=== PATIENT | female | born 1940 | race Caucasian/White ===

== ENCOUNTER → 2017-10-20 | Outpatient (CLI) | payer MEDICARE, OTHER ==
[~2017-10-20] MED LIST: ASCO500 PO; ASPI81CH PO; CALCAVITD PO; CEFU500 PO; CHOL10002 PO; Dilantin 100 m100 MG PO; FISH1000 PO; HYDCHL12.5 PO; Hydrocodone-Ap1 EA23 PO; LEVSOD150 PO; Lisinopril2.5 MG PO; MULVITMINF PO; OXYC10TA19 PO; Omeprazole20 M1 PO; PHENY100ER PO; SIMV40 PO; VITAMIN D3 PO
== END ==
LOC: LAB 15:42
DX: N39.0 Urinary tract infection, site not specified (principal)
CPT/HCPCS: 87086

== ENCOUNTER → 2017-12-01 | Outpatient (CLI) | payer MEDICARE, OTHER ==
[2017-12-01 11:23] LABS: BASOPHILS ABSOLUTE AUTO 0.04 K/mm3 (0.00-0.23); BASOPHILS PERCENT AUTO 1 % (0-2); EOSINOPHILS PERCENT AUTO 1 % (0-6); Hematocrit 39.8 % (33.0-51.0); Hemoglobin 13.3 g/dL (11.5-16.0); IMMATURE GRAN ABSOLUTE AUTO 0.03 K/mm3 (0.00-0.10); IMMATURE GRAN PERCENT AUTO 0 % (0-1); LYMPHOCYTES PERCENT AUTO 31 % (21-46); MONOCYTES ABSOLUTE AUTO 0.58 K/mm3 (0.16-1.47); MONOCYTES PERCENT AUTO 8 % (4-13); Mean Corpuscular HGB 33.3 pg (26.0-34.0); Mean Corpuscular HGB Conc 33.4 g/dL (31.5-36.5); Mean Corpuscular Volume 100 fL (80-100); Mean Platelet Volume 8.8 fL (9.1-12.4); NEUTROPHILS ABSOLUTE AUTO 4.05 K/mm3 (1.96-9.15); NEUTROPHILS PERCENT AUTO 58 % (41-73); Platelet Count 242 K/mm3 (150-400); RDW Coefficient Variation 12.8 % (11.7-14.2); RDW Standard Deviation 47.2 fL (35.1-46.3); Red Blood Cell Count 3.99 M/mm3 (3.80-5.20)
[2017-12-01 11:33] LABS: Alanine Aminotransfer (ALT/SGP 20 U/L (12-78); Albumin, Blood 3.7 g/dL (3.4-5.0); Albumin/Globulin Ratio 1.1 (0.8-1.8); Alk Phos 160 U/L (40-126); Anion Gap 7 mmol/L (6-16); Aspartate Aminotrans (AST/SGOT 14 U/L (12-37); Bilirubin, Total 0.2 mg/dL (0.1-1.0); Blood Urea Nitrogen 17 mg/dL (8-24); Bun/Creatinine Ratio 21.8 (12.0-20.0); CO2, Blood 29 mmol/L (21-32); Calcium, Blood 9.1 mg/dL (8.5-10.1); Chloride, Blood 104 mmol/L (98-108); Creatinine, Blood 0.78 mg/dL (0.40-1.00); Globulin, Blood 3.4 g/dL (2.2-4.0); Glomerular Filtration Rate >60 (60-); Glucose, Blood 99 mg/dL (70-99); Potassium, Blood 4.6 mmol/L (3.5-5.5); Sodium, Blood 140 mmol/L (136-145); Total Protein, Blood 7.1 g/dL (6.4-8.2)
[2017-12-01 11:43] LABS: Source, Urine Clean Catch
[2017-12-01 12:07] LABS: Bacteria Mod /hpf; Red Blood Cells, Urine 0-2 /hpf (0-2); Squamous Epithelial Cells Many /hpf (Few)
== END ==
LOC: LAB SHORT 11:19
PROVIDERS: General Practice
DX: R10.9 Unspecified abdominal pain (principal)
CPT/HCPCS: 80053; 81015; 85025; 87086

== ENCOUNTER → 2017-12-29 | Outpatient (CLI) | payer MEDICARE, OTHER ==
[2017-12-29 15:34] LABS: Bilirubin, Urine Neg (Neg); Blood, Urine 1+ (Neg); Glucose Qualitative, Urine Neg (Neg); Ketones, Urine Neg (Neg); Leukocyte Esterase, Urine 3+ (Neg); Nitrite, Urine Neg (Neg); Protein, Urine Neg (Neg); Urobilinogen, Urine NORM (Normal)
[2017-12-29 15:42] LABS: Appearance, Urine Clear (Clear); Color, Urine Yellow (P-Yellow); Red Blood Cells, Urine 0-2 /hpf (0-2)
[2017-12-29 15:43] LABS: Bacteria Many /hpf; Squamous Epithelial Cells Few /hpf (Few)
== END ==
LOC: LAB 13:20
PROVIDERS: Nurse Practitioner Family
DX: R10.33 Periumbilical pain (principal); R19.09 Other intra-abdominal and pelvic swelling, mass and lump
CPT/HCPCS: 81001

== ENCOUNTER → 2018-03-02 | Outpatient (CLI) | payer MEDICARE, OTHER | LOC: LAB SHORT 11:12 → LAB 11:12 | DX: N39.0 Urinary tract infection, site not specified (principal) | CPT/HCPCS: 87086 ==

== ENCOUNTER → 2018-08-16 | Outpatient (CLI) | payer MEDICARE, OTHER | LOC: LAB SHORT 15:45 → LAB 15:45 | DX: N39.0 Urinary tract infection, site not specified (principal) | CPT/HCPCS: 87086 ==

== ENCOUNTER → 2018-10-30 | Outpatient (CLI) | payer MEDICARE, OTHER | LOC: LAB SHORT 17:42 → LAB 17:42 | DX: R10.0 Acute abdomen (principal) | CPT/HCPCS: 87077; 87086; 87186 ==

== ENCOUNTER → 2020-04-01 | Outpatient (CLI) | payer MEDICARE, OTHER ==
[2020-04-02 10:39] LABS: Candida species (DNA Probe) Negative (NEGATIVE); G. vaginalis (DNA Probe) Negative (NEGATIVE); T. vaginalis (DNA Probe) Negative (NEGATIVE)
== END | disposition home or self-care (01) ==
LOC: LAB SHORT 16:08 → LAB 16:08
PROVIDERS: Obstetrics & Gynecology
DX: N76.0 Acute vaginitis (principal)
CPT/HCPCS: 87480; 87510; 87660

== ENCOUNTER 2020-07-24 18:04 | Emergency (ER) | payer MEDICARE, OTHER ==
[~2020-07-24] VITALS: Ht 154.9 cm; Wt 91.6 kg
[~2020-07-24 18:04] MED LIST changes: +CYAN500 PO; +ESTRADIOL PO; +FOLI1 PO; +FURO20 PO; +OXYB5 PO; +Pepcid 20 mg Ta20 MG PO; +TRIAMTERENE PO
[2020-07-24] MEDS ORDERED: Percocet 7.5-31 EACH PO (20:34)
[2020-07-24] MEDS ORDERED: ONDA4ODT MM (20:35)
== END 2020-07-24 21:22 | disposition home or self-care (01) ==
LOC: ER 18:04
DX: M25.561 Pain in right knee (principal); E03.9 Hypothyroidism, unspecified; E78.5 Hyperlipidemia, unspecified; G40.909 Epilepsy, unspecified, not intractable, without status epilepticus; E66.09 Other obesity due to excess calories; I10 Essential (primary) hypertension; K21.9 Gastro-esophageal reflux disease without esophagitis; Z68.38 Body mass index [BMI] 38.0-38.9, adult; Z88.0 Allergy status to penicillin; Z79.899 Other long term (current) drug therapy
CPT/HCPCS: 99283; A9270

== ENCOUNTER 2020-07-27 07:35 | Day surgery (SDC) | payer MEDICARE, OTHER ==
[~2020-07-27] VITALS: Ht 154.9 cm; Wt 84.1 kg
[~2020-07-27 07:35] MED LIST changes: +ONDA4ODT MM; +Percocet 7.5-31 EACH PO
--- NOTE | 2020-07-27 08:59 | NUR ---
PT INTO SDS VIA W/C. History, Chart, Medications and Allergies reviewed before start of procedure. Lungs clear T/O to Auscultation. Patient confirms NPO status and agrees with scheduled surgery. Pre-Op teaching done. Pt verbalizes understanding.
--- NOTE | 2020-07-27 11:12 | NUR ---
07/27/20 1112 Caleb Florentino ALL ENTRIES BY ORD.JODYG WERE ENTERED BY ORD.ALONZO
[2020-07-27 12:24] LABS: Body Fluid Crystals NEG (NEGATIVE)
--- NOTE | 2020-07-27 14:50 | NUR ---
ARRIVE AT 1210 FROM PACU PT ARRIVED FROM PACU AT 1210, ALERT AND ORIENTED. SHE HAD AND I&D PROCEDURE INSTEAD OF SURGERY. PT REPORTS NUMBESS ON BILATERAL LOW EXTREMITY. PT UNABLE TO WIGGLE TOES AND UNABLE TO MOVE LOW EXTREMITIES. PT DENIES SOB, CHEST PAIN/ PRESSURE, DIZZINESS, PAIN AND TINGLING SENSATION. ALTHOUGH SHE REPORTED NECK PAIN. PT TOLERATED SNACKS (ANDREA AND WATER) WELL. DAUGHTER AT THE BEDSIDE. BOWEL TONES ARE HYPOACTIVE. LUNGS ARE CLEAR. STRONG PALPABLE PULSES ON ALL EXTREMITIES. R KNEE IS WRAPPED WITH WENDI WRAPPED, CDI. PT DENIES PASSING FLATUS. FLU VACCS WAS ADMINISTERED WITH TORADOL.
--- NOTE | 2020-07-27 15:05 | NUR ---
SPINAL ANESTHESIA UPDATE PT ABLE TO MOVE BILATERAL LOW EXTREMITY. SHE IS ABLE TO LIFT LEFT LEG, WEAK RIGHT LEG. PT DENIES TINGLING SENSATION. SHE WAS ABLE TO TOLERATE FLUIDS WITH NO NAUSEA, NO VOMITING, NO CHEST PAIN/PRESSURE AND NO SOB.
[2020-07-27] MEDS ORDERED: ACET500 PO (15:57)
--- NOTE | 2020-07-27 16:20 | NUR ---
PT ARRIVED TO THE UNIT AT APPROXIMATELY 1610. PT IS ALERT AND ORIENTED BUT REPORTS FEELING COLD. PT REPORTS MILD RIGHT HIP PAIN. SHE IS ABLE TO MOVE ALL EXTREMITIES WELL AND DENIES NUMBNESS TO BLE. VSS. WILL MONITOR UNTIL REPORT TO ONCOMING RN.
[2020-07-27] MEDS ORDERED: TRAM50 PO (16:34)
--- NOTE | 2020-07-27 17:04 | NUR ---
DR. PARADA CONTACTED REGARDING DISCHARGE INSTRUCTIONS. CLARIFIED NO NEED FOR ANTIBIOTICS TO BE CALLED IN FOR PT AT THIS TIME. PT AND FAMILY NOTIFIED THAT ANTIBIOTICS NOT INDICATED PER DR. PARADA. DISCHARGE INSTRUCTIONS WERE PROVIDED BY RUSSELL FORMAN.
--- NOTE | 2020-07-27 17:08 | NUR ---
DISCHARGE SUMMARY PT DISCHARGED VIA WHEELCHAIR AT 1700 WITH ELBERTSARAHA AND DAUGHTER. PT IS ALERT AND ORIENTED X 4. SHE REPORTS TINGLING SENSATION ON BILATERAL HANDS, AND BILATERAL LOWER EXTREMITIES. SHE IS ABLE TO MOVE BILATERAL LOW EXTREMITY. SHE HAS BEEN CLEARED BY PHYSICAL THERAPIST. PT DENIES SOB, CHEST PAIN/ PRESSURE, DIZZINESS, AND NUMBNESS. PT DENIES PASSING FLATUS. SHE DENIES PAIN BUT C/O BURNING RLE. RIGHT KNEE IS WRAPPED WITH WENDI WRAP, CDI. EXTRA GAUZE AND WENDI WRAP WAS PROVIDED TO TAKE HOME. PT ADIVSE TO CALL DR FOR ANY S/SX OF INFECTION. PT TOLERATING SNACK WELL PRIOR TO DISCHARGE. DISCHARGED INSTRUCTION WERE ADDRESED WITH DAUGHTER AT BEDSIDE. THEY ARE VERY RECEPTIVE. NOTIFIED THAT DR. PARADA OFFICE WILL CALL TO SCHEDULE A F/U APPT. HAND CARRY RX OF TRAMADOL WAS GIVEN TO PT.
[2020-07-27 22:50] LABS: Color, Synovial Fluid Dark Yellow (None-P Yel)
[2020-07-27 22:51] LABS: Appearance, Synovial Fluid Cloudy (Clear); BODY FLUID RBC 0.018 M/mm3 (0-0); RBC Count, Synovial Fluid 18000 /mm3 (0-0); WBC Count, Synovial Fluid 1568 /mm3 (0-180)
[2020-07-27 23:42] LABS: Lymphs, Synovial Fluid 25 % (0-15); Monocytes/Macrophages, Synovia 11 % (0-65); Neutrophils, Synovial Fluid 61 % (0-24)
== END 2020-07-27 17:00 | disposition home or self-care (01) ==
LOC: ORSCMMR 07:35 → ORD 10:45 → ORSCMMR 10:45 → SURS 12:07 → ORD 14:00 → ORSCMMR 17:00
PROVIDERS: Orthopaedic Surgery
PROC: 0SBC0ZZ Excision of Right Knee Joint, Open Approach (ICD-10-PCS; principal; 2020-07-27 10:45)
DX: M17.11 Unilateral primary osteoarthritis, right knee (principal); I10 Essential (primary) hypertension; R56.9 Unspecified convulsions; Z23 Encounter for immunization; E66.9 Obesity, unspecified; Z68.35 Body mass index [BMI] 35.0-35.9, adult; Z79.899 Other long term (current) drug therapy
CPT/HCPCS: 89051; 89060; 97116; 97162; A9270; J0171; J0690; J0735; J1885; J2250; J2405; J2704; J2795; J7120; Q2038

== ENCOUNTER 2020-08-06 05:41 | Day surgery (SDC) | payer MEDICARE, OTHER ==
[~2020-08-06] VITALS: Wt 92.4 kg
[~2020-08-06 05:41] MED LIST changes: +ACET500 PO; +TRAM50 PO
[2020-08-06] MEDS ORDERED: Lisinopril2.5 MG PO (10:21)
--- NOTE | 2020-08-06 10:27 | NUR ---
History, Chart, Medications and Allergies reviewed before start of procedure. Lungs clear T/O to Auscultation. Patient confirms NPO status and agrees with scheduled surgery. Pre-Op teaching done. Pt verbalizes understanding. Patient reports completing Chlorhexadine shower X2 prior to admission to hospital.
--- NOTE | 2020-08-06 17:28 | NUR ---
SUMMARY: PT IS POD0 L TKA. DOING WELL SINCE POST OP. VSS, A/O. MEDICATED FOR PAIN PER EMAR. ALIX TO WORK WITH THERAPY AND WALK IN [place]. HAS VOIDED, ATTENDS ON FOR OCCASIONAL INCONTENCE. SURGICAL SITE WNL. ATTEMPTING TO RESTART IV AT THIS TIME... L WRIST IV INFILTRATED. PLAN TO GIVE ABX AND TXA WHEN HAVE IV ACCESS. NO ACUTE SAFETY CONCERNS.
[2020-08-07 04:53] LABS: BASOPHILS ABSOLUTE AUTO 0.03 K/mm3 (0.00-0.23); BASOPHILS PERCENT AUTO 0 % (0-2); EOSINOPHILS ABSOLUTE AUTO 0.08 K/mm3 (0.00-0.68); EOSINOPHILS PERCENT AUTO 1 % (0-6); Hematocrit 28.8 % (33.0-51.0); Hemoglobin 9.4 g/dL (11.5-16.0); IMMATURE GRAN ABSOLUTE AUTO 0.16 K/mm3 (0.00-0.10); IMMATURE GRAN PERCENT AUTO 1 % (0-1); LYMPHOCYTES ABSOLUTE AUTO 1.86 K/mm3 (0.84-5.20); LYMPHOCYTES PERCENT AUTO 15 % (21-46); MONOCYTES ABSOLUTE AUTO 1.17 K/mm3 (0.16-1.47); MONOCYTES PERCENT AUTO 9 % (4-13); Mean Corpuscular HGB 32.5 pg (26.0-34.0); Mean Corpuscular HGB Conc 32.6 g/dL (31.5-36.5); Mean Corpuscular Volume 100 fL (80-100); NEUTROPHILS ABSOLUTE AUTO 9.52 K/mm3 (1.96-9.15); NEUTROPHILS PERCENT AUTO 74 % (41-73); Platelet Count 377 K/mm3 (150-400); RDW Coefficient Variation 12.4 % (11.7-14.2); RDW Standard Deviation 45.1 fL (35.1-46.3); Red Blood Cell Count 2.89 M/mm3 (3.80-5.20); White Blood Cell Count 12.82 K/mm3 (4.00-11.30)
[2020-08-07 05:22] LABS: Bun/Creatinine Ratio 13.6 (12.0-20.0); Calcium, Blood 8.1 mg/dL (8.5-10.1); Creatinine, Blood 1.1 mg/dL (0.40-1.00); Magnesium, Blood 2.1 mg/dL (1.6-2.4); Potassium, Blood 3.9 mmol/L (3.5-5.5)
--- NOTE | 2020-08-07 07:02 | NUR ---
SUMMARY PT UP IN CHAIR THIS AM.MED WITH TORADOL PER ROUTINE ORDER. HAS VOIDED WITH ONLY 9 ML PVR. BRUISES NOTED TO LAB DRAW SITEES AND IV ISTES, BUT PT WITHOUT C/O IN REGARDS TO THESE.
[2020-08-07] MEDS ORDERED: OXYC5 PO (16:09)
[2020-08-07] MEDS ORDERED: Aspir 8181 MG PO (16:10)
--- NOTE | 2020-08-07 16:40 | NUR ---
DISCHARGE PT PROVIDED WITH WRITTEN AND VERBAL DISCHARGE INSTRUCTIONS; PT AND HER DAUGHTER REPORTED UNDERSTANDING INSTRUCTIONS. PT PROVIDED WITH SCRIPT FOR PAIN MEDICATION. PAIN MANAGED AT TIME OF DISCHARGE. PT CLEARED THERAPY, ABLE TO AMBULATE SAFELY WITH A WALKER. PT REPORTED CONFUSION ABOUT PHYSICAL THERAPY APPOINTMENTS AND REQUESTED TO HAVE THERAPY IN [place]. MESSAGE LEFT FOR JESUS FORMAN. PT EDUCATED TO CALL SURGEON'S OFFICE AND FOLLOW UP REGARDING THERAPY APPOINTMENTS. VSS. PT ESCORTED OUT IN W/C.
== END 2020-08-07 16:40 | disposition home or self-care (01) ==
LOC: ORSCMMR 05:41 → ORD 07:30 → SURS 11:33 → ORSCMMR 08-07 16:40
PROVIDERS: Orthopaedic Surgery
PROC: 8E0Y0CZ Robotic Assisted Procedure of Lower Extremity, Open Approach (ICD-10-PCS; principal; 2020-08-06 07:30)
PROC: 0SRC0J9 Replacement of Right Knee Joint with Synthetic Substitute, Cemented, Open Approach (ICD-10-PCS; principal; 2020-08-06 07:30)
DX: M17.11 Unilateral primary osteoarthritis, right knee (principal); I10 Essential (primary) hypertension; E03.9 Hypothyroidism, unspecified; Z79.899 Other long term (current) drug therapy; E78.5 Hyperlipidemia, unspecified; G40.909 Epilepsy, unspecified, not intractable, without status epilepticus; E66.01 Morbid (severe) obesity due to excess calories; Z68.38 Body mass index [BMI] 38.0-38.9, adult
CPT/HCPCS: 27447; S2900; 73560-RT; 80048; 83735; 85025; 88300; 97110; 97116; 97162; A9270; A9270-GY; C1713; C1776; J0171; J0690; J0735; J1100; J1885; J2370; J2405; J2704; J2795; J3010; J7120

== ENCOUNTER → 2020-09-15 | Outpatient (CLI) | payer MEDICARE, OTHER ==
[~2020-09-15] MED LIST changes: +Aspir 8181 MG PO; +OXYC5 PO; +TORS10 PO; +Zofran8 MG PO
== END | disposition home or self-care (01) ==
LOC: LAB 17:10
DX: R35.0 Frequency of micturition (principal)
CPT/HCPCS: 87077; 87086; 87186

== ENCOUNTER 2020-10-03 11:56 | Emergency (ER) | payer MEDICARE, OTHER ==
[~2020-10-03] VITALS: Ht 152.4 cm; Wt 90.7 kg
[~2020-10-03 11:56] MED LIST changes: -TORS10 PO; -Zofran8 MG PO
[2020-10-03] MEDS ORDERED: TORS10 PO (12:09)
[2020-10-03 12:24] LABS: BASOPHILS ABSOLUTE AUTO 0.04 K/mm3 (0.00-0.23); BASOPHILS PERCENT AUTO 0 % (0-2); EOSINOPHILS ABSOLUTE AUTO 0.29 K/mm3 (0.00-0.68); EOSINOPHILS PERCENT AUTO 2 % (0-6); Hematocrit 36.8 % (33.0-51.0); Hemoglobin 11.9 g/dL (11.5-16.0); IMMATURE GRAN ABSOLUTE AUTO 0.05 K/mm3 (0.00-0.10); IMMATURE GRAN PERCENT AUTO 0 % (0-1); LYMPHOCYTES PERCENT AUTO 30 % (21-46); MONOCYTES ABSOLUTE AUTO 0.71 K/mm3 (0.16-1.47); MONOCYTES PERCENT AUTO 5 % (4-13); Mean Corpuscular HGB 32.4 pg (26.0-34.0); Mean Corpuscular HGB Conc 32.3 g/dL (31.5-36.5); Mean Corpuscular Volume 100 fL (80-100); Mean Platelet Volume 9.5 fL (9.1-12.4); NEUTROPHILS ABSOLUTE AUTO 9.36 K/mm3 (1.96-9.15); NEUTROPHILS PERCENT AUTO 63 % (41-73); Platelet Count 378 K/mm3 (150-400); RDW Coefficient Variation 13.8 % (11.7-14.2); Red Blood Cell Count 3.67 M/mm3 (3.80-5.20); White Blood Cell Count 14.85 K/mm3 (4.00-11.30)
[2020-10-03 12:41] LABS: Albumin, Blood 3.5 g/dL (3.4-5.0); Bilirubin, Total 0.4 mg/dL (0.1-1.0); Bun/Creatinine Ratio 13.9 (12.0-20.0); Calcium, Blood 8.5 mg/dL (8.5-10.1); Creatinine, Blood 1.37 mg/dL (0.40-1.00); Globulin, Blood 3.5 g/dL (2.2-4.0); Potassium, Blood 3.4 mmol/L (3.5-5.5)
[2020-10-03] MEDS ORDERED: Zofran8 MG PO (14:29)
== END 2020-10-03 14:55 | disposition home or self-care (01) ==
LOC: ER 11:56
PROVIDERS: Emergency Medicine
DX: E86.0 Dehydration (principal); N17.9 Acute kidney failure, unspecified; R19.7 Diarrhea, unspecified; E03.9 Hypothyroidism, unspecified; E78.5 Hyperlipidemia, unspecified; I10 Essential (primary) hypertension; K21.9 Gastro-esophageal reflux disease without esophagitis; Z88.0 Allergy status to penicillin; Z79.82 Long term (current) use of aspirin; Z79.899 Other long term (current) drug therapy
CPT/HCPCS: 36415; 71045; 74177; 80053; 83690; 85025; 93005; 93010; 96361; 96374-59; 99285-25; J2765; J7030; Q9967

== ENCOUNTER → 2021-08-09 | Outpatient (CLI) | payer MEDICARE, OTHER ==
[~2021-08-09] MED LIST changes: +TORS10 PO; +Zofran8 MG PO
== END | disposition home or self-care (01) ==
LOC: LAB 11:01 → LAB SHORT 11:01
DX: N39.0 Urinary tract infection, site not specified (principal)
CPT/HCPCS: 87077; 87086; 87186

== ENCOUNTER → 2022-06-07 | Outpatient (CLI) | payer MEDICARE, OTHER | END | disposition home or self-care (01) | LOC: LAB SHORT 15:00 | DX: N39.0 Urinary tract infection, site not specified (principal) | CPT/HCPCS: 87077; 87086; 87186 ==

== ENCOUNTER 2023-05-10 11:03 | Day surgery (SDC) | payer MEDICARE, OTHER ==
[~2023-05-10] VITALS: Ht 149.9 cm; Wt 85.7 kg
[~2023-05-10 11:03] MED LIST changes: +EUTHYROX175 MCG PO; +FOLIC ACID0.4 MG PO; +FURO40 PO; +KLOR-CON M1010 MEQ PO; +PANT40 PO
--- NOTE | 2023-05-10 11:49 | NUR ---
05/10/23 1149 Maria Alejandra Singleton TIME OUT WITH DR PARADA AND SITE CHECK 1149 BY [email or web address]
[2023-05-10 12:56] VITALS: BP 154/69
--- NOTE | 2023-05-10 12:58 | NUR ---
05/10/23 1258 Michelle Witt CASE CANCELED BY SURGEON DUE TO RAPID HEART RATE(120-140). PATIENT IS ALERT, APPROPRIATE AND DENIES S/S DISTRESS. ANESTHESIA CONTACTED, ASSESED PATIENT AND STATED THAT PATIENT NEEDS TO GO TO THE ER. SURGEON CALLED THE DAUGHTER WITH AN UPDATE AND CALLED THE ER WITH A PATIENT REPORT. PATIENT TRANSFERED TO SDU. BP 154/69, 02 100%, P149. PATIENT CONTINUES TO DENY CHEST PAIN, SOB, DIZZINESS. PATIENT TRANSFERED TO W/C AND TAKEN TO ER BY [facility].FLL. IV REMAINS INTACT AND TAKEN TO ER WITH PATIENT.
--- NOTE | 2023-05-10 12:59 | NUR ---
05/10/23 1259 Maria Alejandra Singleton LATE ENTRY: PT ARRIVES TO STEP DOWN AT 1234 ACCOMPANIED BY ORSCGRIFFIN. SURGERY WAS CANCELLED IN THE OR DUE TO INCREASED HEART RATE. DR PARADA HAS CALLED THE EMERGENCY DEPARTMENT TO GIVE REPORT AND WANTS THE PT TRANSFERERD DIRECTLY TO THE EMERGENCY DEPARTMENT TO BE TRIAGED. VITAL SIGNS WERE PREFORMED IN SDU AND THE PT IS TRANSFERED TO WHEELCHAIR AND TAKEN TO THE EMERGENCY DEPARTMENT AND CHECKED IN. FAMILY IS PRESENT AT THIS TIME.
[2023-05-10] MEDS ORDERED: FOLI1 PO (13:38)
[2023-05-10] MEDS ORDERED: LISINOPRIL2.5 MG PO (13:39)
[2023-05-10] MEDS ORDERED: FAMO20 PO (13:40)
[2023-05-10] MEDS ORDERED: PANTOPRAZOLE SO40 M2 PO (13:40)
[2023-05-10] MEDS ORDERED: KLOR-CON 1010 ME9 PO (13:42)
[2023-05-10] MEDS ORDERED: FUROSEMIDE40 MG PO (13:42)
[2023-05-10] MEDS ORDERED: Toprol Xl50 MG PO (16:56)
[2023-05-10] MEDS ORDERED: XARELTO20 MG PO (16:56)
== END 2023-05-10 12:44 | disposition home or self-care (01) ==
LOC: ORSCSDS 11:03
DX: G56.01 Carpal tunnel syndrome, right upper limb (principal); Z53.9 Procedure and treatment not carried out, unspecified reason
CPT/HCPCS: J7120

== ENCOUNTER 2023-05-10 12:44 | Emergency (ER) | payer MEDICARE, OTHER ==
[~2023-05-10] VITALS: Ht 149.9 cm; Wt 90.7 kg
[2023-05-10] MEDS ORDERED: FOLI1 PO (13:38)
[2023-05-10] MEDS ORDERED: LISINOPRIL2.5 MG PO (13:39)
[2023-05-10 13:40] LABS: BASOPHILS ABSOLUTE AUTO 0.03 K/mm3 (0.00-0.23); BASOPHILS PERCENT AUTO 0 % (0-2); EOSINOPHILS PERCENT AUTO 2 % (0-6); Hematocrit 43.7 % (33.0-51.0); Hemoglobin 14.7 g/dL (11.5-16.0); IMMATURE GRAN ABSOLUTE AUTO 0.02 K/mm3 (0.00-0.10); IMMATURE GRAN PERCENT AUTO 0 % (0-1); LYMPHOCYTES ABSOLUTE AUTO 2.45 K/mm3 (0.84-5.20); LYMPHOCYTES PERCENT AUTO 36 % (21-46); MONOCYTES ABSOLUTE AUTO 0.58 K/mm3 (0.16-1.47); MONOCYTES PERCENT AUTO 9 % (4-13); Mean Corpuscular HGB 33.3 pg (26.0-34.0); Mean Corpuscular HGB Conc 33.6 g/dL (31.5-36.5); Mean Corpuscular Volume 99 fL (80-100); Mean Platelet Volume 9.3 fL (9.1-12.4); NEUTROPHILS ABSOLUTE AUTO 3.62 K/mm3 (1.96-9.15); NEUTROPHILS PERCENT AUTO 53 % (41-73); Platelet Count 246 K/mm3 (150-400); RDW Coefficient Variation 13.5 % (11.7-14.2); RDW Standard Deviation 49.9 fL (35.1-46.3); Red Blood Cell Count 4.41 M/mm3 (3.80-5.20)
[2023-05-10] MEDS ORDERED: FAMO20 PO (13:40)
[2023-05-10] MEDS ORDERED: PANTOPRAZOLE SO40 M2 PO (13:40)
[2023-05-10] MEDS ORDERED: FUROSEMIDE40 MG PO (13:42)
[2023-05-10] MEDS ORDERED: KLOR-CON 1010 ME9 PO (13:42)
[2023-05-10 14:10] LABS: Albumin, Blood 4.1 g/dL (3.4-5.0); Albumin/Globulin Ratio 1.3 (0.8-1.8); Bilirubin, Total 0.4 mg/dL (0.1-1.0); Bun/Creatinine Ratio 14.7 (12.0-20.0); Calcium, Blood 8.8 mg/dL (8.5-10.1); Creatinine, Blood 0.89 mg/dL (0.40-1.00); Globulin, Blood 3.1 g/dL (2.2-4.0); Potassium, Blood 3.8 mmol/L (3.5-5.5); Thyroid Stimulating Hormone 6.46 uIU/mL (0.360-4.800); Total Protein, Blood 7.2 g/dL (6.4-8.2)
[2023-05-10] MEDS ORDERED: XARELTO20 MG PO (16:56)
[2023-05-10] MEDS ORDERED: Toprol Xl50 MG PO (16:56)
[2023-05-10 17:23] VITALS: BP 128/69
[2023-05-10 19:02] LABS: Campylobacter Sp Not Detected (NOT DETECT); Enteroaggregative E. coli-EAEC Not Detected (NOT DETECT); Enteropathogenic E. coli-EPEC Not Detected (NOT DETECT); Enterotoxigenic E. coli-ETEC Not Detected (NOT DETECT); Plesiomonas Shigelloides Not Detected (NOT DETECT); Salmonella Sp Not Detected (NOT DETECT); Vibrio Cholerae Not Detected (NOT DETECT); Vibrio Sp Not Detected (NOT DETECT); Yersinia Enterocolitica Not Detected (NOT DETECT)
[2023-05-10 19:03] LABS: Adenovirus F 40/41 Not Detected (NOT DETECT); Astrovirus Not Detected (NOT DETECT); Cryptosporidium Not Detected (NOT DETECT); Cyclospora Cayetanensis Not Detected (NOT DETECT); E. Coli O157 Not Detected (NOT DETECT); Entamoeba Histolytica Not Detected (NOT DETECT); Giardia Lamblia Not Detected (NOT DETECT); Norovirus GI/GII Not Detected (NOT DETECT); Rotavirus A Not Detected (NOT DETECT); Sapovirus Not Detected (NOT DETECT); Shiga Toxin-prod E. coli-STEC Not Detected (NOT DETECT); Shigella/Enteroin E. coli-EIEC Not Detected (NOT DETECT)
== END 2023-05-10 18:10 | disposition home or self-care (01) ==
LOC: ER 12:44
PROVIDERS: Physician Assistant
DX: I48.91 Unspecified atrial fibrillation (principal); G40.909 Epilepsy, unspecified, not intractable, without status epilepticus; E03.9 Hypothyroidism, unspecified; E78.5 Hyperlipidemia, unspecified; I10 Essential (primary) hypertension; Z88.0 Allergy status to penicillin; Z79.899 Other long term (current) drug therapy
CPT/HCPCS: 80053; 83735; 83880; 84443; 85025; 87507; 93005; 93010; 99285-25; A9270

== ENCOUNTER 2023-07-19 00:08 | Inpatient (IN) | payer MEDICARE, OTHER ==
[~2023-07-19] VITALS: Ht 162.6 cm; Wt 86.5 kg
[~2023-07-19 00:08] MED LIST changes: +CYCL10 PO; +FAMO20 PO; +FUROSEMIDE40 MG PO; +KLOR-CON 1010 ME9 PO; +LIDO700A20 TOP; +LISINOPRIL2.5 MG PO; +PANTOPRAZOLE SO40 M2 PO; +PHENYTOIN SODI100 MG PO; +Toprol Xl50 MG PO; +XARELTO20 MG PO; +ZOCOR20 MG PO
[2023-07-19 02:58] LABS: Influenza A, PCR NEGATIVE (NEGATIVE); Influenza B, PCR NEGATIVE (NEGATIVE); Resp Syncytial Virus, PCR NEGATIVE (NEGATIVE); SARS-Cov-2 (COVID-19) PCR, MMC NEGATIVE (NEGATIVE)
[2023-07-19 03:10] LABS: BASOPHILS ABSOLUTE AUTO 0.03 K/mm3 (0.00-0.23); BASOPHILS PERCENT AUTO 0 % (0-2); EOSINOPHILS PERCENT AUTO 0 % (0-6); Hematocrit 35.5 % (33.0-51.0); IMMATURE GRAN ABSOLUTE AUTO 0.09 K/mm3 (0.00-0.10); IMMATURE GRAN PERCENT AUTO 1 % (0-1); LYMPHOCYTES ABSOLUTE AUTO 0.76 K/mm3 (0.84-5.20); LYMPHOCYTES PERCENT AUTO 6 % (21-46); MONOCYTES ABSOLUTE AUTO 0.87 K/mm3 (0.16-1.47); MONOCYTES PERCENT AUTO 7 % (4-13); Mean Corpuscular HGB 32.2 pg (26.0-34.0); Mean Corpuscular HGB Conc 33.8 g/dL (31.5-36.5); Mean Corpuscular Volume 95 fL (80-100); Mean Platelet Volume 10.5 fL (9.1-12.4); NEUTROPHILS PERCENT AUTO 87 % (41-73); Platelet Count 238 K/mm3 (150-400); RDW Coefficient Variation 13.3 % (11.7-14.2); RDW Standard Deviation 47.4 fL (35.1-46.3); Red Blood Cell Count 3.73 M/mm3 (3.80-5.20); White Blood Cell Count 13.05 K/mm3 (4.00-11.30)
[2023-07-19 03:50] LABS: Albumin, Blood 2.5 g/dL (3.4-5.0); Albumin/Globulin Ratio 0.7 (0.8-1.8); Bilirubin, Total 0.9 mg/dL (0.1-1.0); Bun/Creatinine Ratio 20.9 (12.0-20.0); Calcium, Blood 8.6 mg/dL (8.5-10.1); Creatinine, Blood 1.15 mg/dL (0.40-1.00); Globulin, Blood 3.8 g/dL (2.2-4.0); Magnesium, Blood 1.9 mg/dL (1.6-2.4); Phosphorus, Blood 1.4 mg/dL (2.5-4.9); Potassium, Blood 3.4 mmol/L (3.5-5.5); Total Protein, Blood 6.3 g/dL (6.4-8.2)
[2023-07-19 06:01] LABS: Source, Urine Clean Catch
[2023-07-19 06:04] LABS: Appearance, Urine Hazy (Clear); Bilirubin, Urine Neg (Neg); Blood, Urine 3+ (Neg); Color, Urine Yellow (P-Yellow); Glucose Qualitative, Urine Neg (Neg); Ketones, Urine Neg (Neg); Leukocyte Esterase, Urine 3+ (Neg); Nitrite, Urine Pos (Neg); Protein, Urine 3+ (Neg); Specific Gravity, Urine 1.015 (1.003-1.022); Urobilinogen, Urine 2+ (Normal)
[2023-07-19 06:21] LABS: Bacteria Many /hpf; Squamous Epithelial Cells Few /hpf (Few); White Blood Cells, Urine 25-50 /hpf (0-5)
--- NOTE | 2023-07-19 19:36 | NUR ---
1833 PATIENT TO MEDICAL FLOOR, REPORT FROM LAPEL PADDER BLINDSTITCH, PATIENT SLOW TO RESPOND, ALERT AND ORIENTED X4, MAKES NEEDS KNOWN, NEW ATTENDS ON, PATIENT HAS BEEN VERY WEAK AND FATIGUED FOR SEVERAL DAYS AND IS UNABLE TO MOVE, DENIES CHEST PAIN+UTI, BC PENDING, PATIENT CHANGED ATTENDS, ORIENTED TO CALL LIGHT AND TV REMOTE, REPORT TO YONI
[2023-07-19 20:22] VITALS: BP 122/96
[2023-07-19] MEDS ORDERED: ERGO50000 PO (22:27)
[2023-07-19 23:18] VITALS: BP 136/95
[2023-07-19 23:37] VITALS: BP 129/89
[2023-07-19 23:50] VITALS: BP 88/60
[2023-07-19 23:52] VITALS: BP 102/62
[2023-07-20] VITALS (10 sets, daily range): BP systolic 109–128; BP diastolic 65–96
[2023-07-20 02:43] LABS: Albumin, Blood 2.1 g/dL (3.4-5.0); Albumin/Globulin Ratio 0.6 (0.8-1.8); Bilirubin, Total 0.6 mg/dL (0.1-1.0); Bun/Creatinine Ratio 21.8 (12.0-20.0); Calcium, Blood 8.1 mg/dL (8.5-10.1); Creatinine, Blood 1.1 mg/dL (0.40-1.00); Globulin, Blood 3.3 g/dL (2.2-4.0); Magnesium, Blood 1.6 mg/dL (1.6-2.4); Potassium, Blood 3.4 mmol/L (3.5-5.5); Total Protein, Blood 5.4 g/dL (6.4-8.2)
[2023-07-20 06:06] LABS: BASOPHILS ABSOLUTE AUTO 0.02 K/mm3 (0.00-0.23); BASOPHILS PERCENT AUTO 0 % (0-2); EOSINOPHILS ABSOLUTE AUTO 0.03 K/mm3 (0.00-0.68); EOSINOPHILS PERCENT AUTO 0 % (0-6); Hematocrit 32.1 % (33.0-51.0); Hemoglobin 10.8 g/dL (11.5-16.0); IMMATURE GRAN ABSOLUTE AUTO 0.09 K/mm3 (0.00-0.10); IMMATURE GRAN PERCENT AUTO 1 % (0-1); LYMPHOCYTES ABSOLUTE AUTO 0.94 K/mm3 (0.84-5.20); LYMPHOCYTES PERCENT AUTO 9 % (21-46); MONOCYTES ABSOLUTE AUTO 1.02 K/mm3 (0.16-1.47); MONOCYTES PERCENT AUTO 10 % (4-13); Mean Corpuscular HGB Conc 33.6 g/dL (31.5-36.5); Mean Corpuscular Volume 95 fL (80-100); Mean Platelet Volume 11.2 fL (9.1-12.4); NEUTROPHILS ABSOLUTE AUTO 8.34 K/mm3 (1.96-9.15); NEUTROPHILS PERCENT AUTO 80 % (41-73); Platelet Count 216 K/mm3 (150-400); RDW Coefficient Variation 13.8 % (11.7-14.2); RDW Standard Deviation 48.2 fL (35.1-46.3); Red Blood Cell Count 3.37 M/mm3 (3.80-5.20); White Blood Cell Count 10.44 K/mm3 (4.00-11.30)
[2023-07-20 06:26] LABS: Magnesium, Blood 1.8 mg/dL (1.6-2.4)
[2023-07-20 06:27] LABS: Albumin, Blood 2.1 g/dL (3.4-5.0); Anion Gap 7 mmol/L (6-16); Blood Urea Nitrogen 25 mg/dL (8-24); Bun/Creatinine Ratio 22.1 (12.0-20.0); CO2, Blood 24 mmol/L (21-32); Calcium, Blood 8.3 mg/dL (8.5-10.1); Chloride, Blood 103 mmol/L (98-108); Creatinine, Blood 1.13 mg/dL (0.40-1.00); Glomerular Filtration Rate 49 (60-); Glucose, Blood 101 mg/dL (70-99); Phosphorus, Blood 2.4 mg/dL (2.5-4.9); Potassium, Blood 3.6 mmol/L (3.5-5.5); Sodium, Blood 134 mmol/L (136-145)
--- NOTE | 2023-07-20 06:53 | NUR ---
SHIFT SUMMARY PT LAYING IN BED DURING BEDSIDE ROUND- PT DENIED PAIN/SOB ASSESSMENT DONE- PT ABLE TO ANSWER QUESTIONS APPROPRIATELY, BED BATH DONE, PT TOLERATED WELL, PT INCONTIENT OF URINE- BRIEF CHANGED-2319 PT C/O CP- CALL LAURA DANIELS- NEW ORDER FOR EKG, TROPONIN AND NITRO SL- PT REPORTED PAIN 10/10 BEFORE FIRST DOSE OF NITRO - REPEATED 2ND DOSE IN 5 MIN- PT REPORTED 0/10 AFTER 2ND DOSE- EKG = AFIB RVR- 129- CALL TO LAURA DANIELS - NEW ORDER FOR LOPRESSOR 5MG IV- [address] PEREZ RE: HR AVERAGING 120S AND UP TO 140S AT TIMES, NEW ORDER FOR CARDIZEM 10MG IV X 1- PT TOLERATING WELL HR DOWN AROUND [phone] HR IN THE 130S-140S- GAVE LOPRESSOR 5MG IV PUSH - WILL CONTINUE TO MONITOR 0 CALL FROM LAB RE BLOOD CULTURES GROWING GRAM NEG BACILLI, CALL TO DR. TEJEDA RE: REPEAT LOPRESSOR PUSH- PT HR IN 120S AND GETTING UP IN THE 140S-150S- DR. TEJEDA WILL PUT IN ORDERS 0555 GAVE REPEAT DOSE OF LOPRESSOR AND STARTED FLUIDS WITH POTASSIUM- LEFT ROOM TO GET PUMP AND RETURNED PT REMOVED OWN IV- 629 CALL FROM TELE WHILE STARTING IV THAT PT'S HR IN THE 120S AND TOUCHES UP IN THE 150S AT TIMES, - PT CONFUSED AND STATED " SOMEONE WAS EATING POTATOES CHIPS AND PUTTING JUGS OF STUFF IN MY ARM"- REORIENTED PT THAT I HAD STARTED HER FLUIDS - PT STATED THAT SHE WASN'T CONFUSED AND IT WASN'T ME IT WAS SOMEONE ELSE, NEW IV IN RIGHT AC, SECURED AND COVERED TO ASSIST WITH KEEPING FROM PT REMOVING- PT TOLERATED WELL, GIVING REPORT TO DARRYL FORMAN
--- NOTE | 2023-07-20 19:32 | NUR ---
PATIENT MENTATIONS AND ALERTNESS IMPROVED THROUGHOUT THE DAY, A&OX2-3 VERY FORGETFUL, HARD TO RE-DIRECT AT TIMES. ECHO DONE AT BEDSIDE, DAUGHTERS VISITED AT BEDSIDE, PG PLACED IN LEFT UPPER ARM, HEART RATE STAYED IN THE 110s, NO EVNETS REPORTED FROM TELE, MEDICATED ONCE WITH LOPRESSOR IV, BM SMEAR, SWALLOWING PRECAUTIONS WITH 1:1, PATIENT HAS COUGHIN EPISODES AND ASPIRATES ON FOOD AT TIMES, ST RECOMMENDED FOR TOMORROW, REPORTED TO PM RN
[2023-07-21 02:21] VITALS: BP 130/90
--- NOTE | 2023-07-21 06:42 | NUR ---
SHIFT SUMMARY PT IS A&O1-2, BEDREST DUE TO WEAKNESS, RA, PRN METOPROLOL GIVEN PER MAR X1 FOR HR IN 130'S, NO COMPLAINTS OF PAIN OR DISCOMFORT OVERNIGHT, CONTINUE POC
[2023-07-21 08:07] VITALS: BP 119/82
[2023-07-21 09:42] LABS: BASOPHILS ABSOLUTE AUTO 0.03 K/mm3 (0.00-0.23); BASOPHILS PERCENT AUTO 0 % (0-2); EOSINOPHILS ABSOLUTE AUTO 0.06 K/mm3 (0.00-0.68); EOSINOPHILS PERCENT AUTO 1 % (0-6); Hematocrit 35.2 % (33.0-51.0); Hemoglobin 11.8 g/dL (11.5-16.0); IMMATURE GRAN PERCENT AUTO 3 % (0-1); LYMPHOCYTES ABSOLUTE AUTO 0.99 K/mm3 (0.84-5.20); LYMPHOCYTES PERCENT AUTO 10 % (21-46); MONOCYTES ABSOLUTE AUTO 0.84 K/mm3 (0.16-1.47); MONOCYTES PERCENT AUTO 8 % (4-13); Mean Corpuscular HGB 31.9 pg (26.0-34.0); Mean Corpuscular HGB Conc 33.5 g/dL (31.5-36.5); Mean Corpuscular Volume 95 fL (80-100); Mean Platelet Volume 10.6 fL (9.1-12.4); NEUTROPHILS ABSOLUTE AUTO 7.91 K/mm3 (1.96-9.15); NEUTROPHILS PERCENT AUTO 78 % (41-73); Platelet Count 264 K/mm3 (150-400); RDW Coefficient Variation 13.9 % (11.7-14.2); RDW Standard Deviation 49.1 fL (35.1-46.3); White Blood Cell Count 10.13 K/mm3 (4.00-11.30)
[2023-07-21 10:01] LABS: Albumin, Blood 2.1 g/dL (3.4-5.0); Anion Gap 5 mmol/L (6-16); Blood Urea Nitrogen 27 mg/dL (8-24); Bun/Creatinine Ratio 27.7 (12.0-20.0); CO2, Blood 24 mmol/L (21-32); Calcium, Blood 8.4 mg/dL (8.5-10.1); Chloride, Blood 106 mmol/L (98-108); Creatinine, Blood 0.97 mg/dL (0.40-1.00); Glomerular Filtration Rate 59 (60-); Glucose, Blood 149 mg/dL (70-99); Phosphorus, Blood 2.4 mg/dL (2.5-4.9); Sodium, Blood 135 mmol/L (136-145)
[2023-07-21 17:19] VITALS: BP 112/76
--- NOTE | 2023-07-21 17:57 | NUR ---
SUMMARY- NO ACUTE EVENTS THIS SHIFT. PT TO EDGE OF BED TODAY AND STOOD AT THE BEDSIDE. PT GIVEN TYLENOL FOR ABD PAIN AND MIRALAX FOR "CONSTIPATION" PER PT. AAOX2. X1 ASSIST.
[2023-07-21 19:53] VITALS: BP 132/88
[2023-07-22 05:38] LABS: Hematocrit 33.7 % (33.0-51.0); Hemoglobin 11.2 g/dL (11.5-16.0); Mean Corpuscular HGB 31.7 pg (26.0-34.0); Mean Corpuscular HGB Conc 33.2 g/dL (31.5-36.5); Mean Corpuscular Volume 96 fL (80-100); Mean Platelet Volume 10.8 fL (9.1-12.4); Platelet Count 303 K/mm3 (150-400); RDW Coefficient Variation 13.8 % (11.7-14.2); RDW Standard Deviation 48.4 fL (35.1-46.3); Red Blood Cell Count 3.53 M/mm3 (3.80-5.20); White Blood Cell Count 9.33 K/mm3 (4.00-11.30)
[2023-07-22 06:37] LABS: Albumin, Blood 1.9 g/dL (3.4-5.0); Anion Gap 4 mmol/L (6-16); Blood Urea Nitrogen 26 mg/dL (8-24); Bun/Creatinine Ratio 27.2 (12.0-20.0); CO2, Blood 25 mmol/L (21-32); Calcium, Blood 8.2 mg/dL (8.5-10.1); Chloride, Blood 109 mmol/L (98-108); Creatinine, Blood 0.96 mg/dL (0.40-1.00); Glomerular Filtration Rate 59 (60-); Glucose, Blood 101 mg/dL (70-99); Phosphorus, Blood 2.5 mg/dL (2.5-4.9); Potassium, Blood 4.4 mmol/L (3.5-5.5); Sodium, Blood 138 mmol/L (136-145)
[2023-07-22 06:40] LABS: BASOPHILS PERCENT MAN 0 % (0-2); EOSINOPHILS ABSOLUTE MAN 0.27 K/mm3 (0.00-0.68); EOSINOPHILS PERCENT MAN 3 % (0-6); LYMPHOCYTES ABSOLUTE MAN 1.21 K/mm3 (0.84-5.20); LYMPHOCYTES PERCENT MAN 13 % (21-46); METAMYELOCYTE ABSOLUTE MAN 0.09 K/mm3 (0.00-0.00); METAMYELOCYTE PERCENT MAN 1 % (0-0); MONOCYTES ABSOLUTE MAN 1.21 K/mm3 (0.16-1.47); MONOCYTES PERCENT MAN 13 % (4-13); NEUTROPHILS ABSOLUTE MAN 6.53 K/mm3 (1.96-9.15); SEG NEUTROPHILS PERCENT MAN 70 % (41-73); TOTAL CELLS COUNTED 100
[2023-07-22 07:08] VITALS: BP 104/73
[2023-07-22 14:47] VITALS: BP 116/79
--- NOTE | 2023-07-22 18:35 | NUR ---
SHIFT SUMMARY: LIZ IS A&OX 2-3. VSS, NO ACUTE EVENTS THIS SHIFT. HR DID INCREASE TO THE 150'S WHILE WORKING WITH PT THIS AM. DISCUSSED WITH HOSPITALIST. PT IS A ONE-PERSON ASSIST WITH THE GAIT BELT AND FWW TO BEDSIDE RECLINER. SHE IS TOLERATING PO INTAKE WELL, BUT HAS REPORTED A POOR APPETITE THIS SHIFT. PT'S DAUGHTER STATED THAT PT HAS HAD A POOR APPETITE AT HOME WELL. POWERGLIDE TO GALEN CASH AND ATTENDS IN PLACE. PT STATES THAT SHE HAS NOT HAD A BOWEL MOVEMENT RECENTLY, BUT PT DECLINED MIRALAX THIS SHIFT. SHE IS LYING IN BED WITH THE CALL LIGHT IN REACH. WCTM UNTIL REPORT IS GIVEN TO TMD TEACHER RN.
[2023-07-22 19:38] VITALS: BP 119/87
[2023-07-22 21:26] VITALS: BP 116/82
[2023-07-22 22:34] VITALS: BP 102/87
[2023-07-22 23:30] VITALS: BP 105/47
[2023-07-23] VITALS (10 sets, daily range): BP systolic 87–113; BP diastolic 63–90
--- NOTE | 2023-07-23 00:53 | NUR ---
SHIFT SUMMARY ASSUMED CARE OF PATIENT FROM DAY RN. PATIENT IS A/0x2-3, SOFT SPOKEN, WITHDRAWN. SOME CONFUSION NOTED. INITIALLY DENIED PAIN AT START OF SHIFT. AT ABOUT TIME OF HS MEDICATION PASS, PERSONALIZED LIVING ASSISTANT CALLED THIS RN TO INFORM OF 5 SECONDS OF AFib W/RVR, HR OF 157bpm. THIS RN ASSESSED PATIENT, SHE DENIED CHEST PAIN/PRESSURE. APPEARED CONFUSED AND VAGUE WITH REPONCE, HAD PROMINENT FACIAL GRIMACE. ONCALL PROVIDER NOTFIED AND RECEIVED NEW ORDERS. FOLLOWING ADMINISTRATION OF NEW MEDICATIONS AND 1 DOSE OF NITRO SL PATIENT THEN C/O SEVER RADIATING CHEST PAIN. PROVIDER NOTFIED OF CHEST PAIN AND HEART RATE STILL TACHY 150s-170S, UNRELIEVED BY CURRENT INTERVENTONS. PER PROVIDER, PATIENT TO BE TRANSFERED TO PCU TO BEGIN CARDIZEM DRIP. REPORT CALLED TO PCU NURSE, PATIENT TRANSPORTED AT 00:15.
--- NOTE | 2023-07-23 01:21 | NUR ---
ASSUMPTION OF CARE THIS RN ASSUMED CARE OF PT AT 0018, PT TRANSFERRED FROM MEDICAL FLOOR. REPORT FROM DICKSON FUCHS. PT A&O X2 - 3; RESPONDING TO QUESTIONS AND FOLLOWING COMMANDS. PT DENIES CP OR PRESSURE, SOB, PALPIATIONS, DIZZINESS OR LIGHTHEADNESS. SMALL AUDIBLE WHEEZE NOTED WHEN PT LYING FLAT, DENIES SOB OR DIFFICULTY BREATHING. VSS; HRR AFIB 120 - 150'S, SBP 101 W/MAP OF 80. CARDIZEM GTT STARTED. WILL CONTINUE TO MONITOR AND REASSESS THIS SHIFT. PT ARRIVED W/SHAILESH IN PLACE; CHANGED AT ARRIVAL AND WILL REPLACED. PT ORIENTED TO ROOM AND CALL LIGHT IN REACH.
[2023-07-23 04:31] LABS: Hemoglobin 10.9 g/dL (11.5-16.0); Mean Corpuscular HGB 31.8 pg (26.0-34.0); Mean Corpuscular Volume 96 fL (80-100); Mean Platelet Volume 10.4 fL (9.1-12.4); Platelet Count 354 K/mm3 (150-400); RDW Coefficient Variation 13.8 % (11.7-14.2); Red Blood Cell Count 3.43 M/mm3 (3.80-5.20); White Blood Cell Count 9.72 K/mm3 (4.00-11.30)
[2023-07-23 05:08] LABS: Anion Gap 3 mmol/L (6-16); Blood Urea Nitrogen 21 mg/dL (8-24); Bun/Creatinine Ratio 22.7 (12.0-20.0); CO2, Blood 29 mmol/L (21-32); Calcium, Blood 8.1 mg/dL (8.5-10.1); Chloride, Blood 105 mmol/L (98-108); Creatinine, Blood 0.92 mg/dL (0.40-1.00); Glomerular Filtration Rate 63 (60-); Glucose, Blood 96 mg/dL (70-99); Phosphorus, Blood 4.1 mg/dL (2.5-4.9); Potassium, Blood 4.5 mmol/L (3.5-5.5); Sodium, Blood 137 mmol/L (136-145)
--- NOTE | 2023-07-23 06:19 | NUR ---
SHIFT SUMMARY PT A&O X3; FOLLOWS COMMAND AND RESPONDING TO QUESTIONS APPROPRIATELY. VSS; HR REMAINS AFIB 100'S - 120'S. CARDIZEM GTT INFUSING AT 5 MLS/HR AT THIS TIME. BP HIGH 90'S - 1 TEENS. AFEBRILE, SPO2 >95% ON RA. PT DENIES CP OR PRESSURE, DENIES SOB, PALPIATIONS OR DIZZINESS. PT RESTED WELL SINCE ARRIVAL TO PCU. REPOSITIONED Q2. PUREWICK AND ATTENDS IN PLACE. WILL UPDATE ONCOMING RN
[2023-07-23 06:58] LABS: BAND PERCENT MAN 3 % (0-8); BASOPHILS PERCENT MAN 0 % (0-2); EOSINOPHILS ABSOLUTE MAN 0.38 K/mm3 (0.00-0.68); EOSINOPHILS PERCENT MAN 4 % (0-6); LYMPHOCYTES ABSOLUTE MAN 1.84 K/mm3 (0.84-5.20); LYMPHOCYTES PERCENT MAN 19 % (21-46); METAMYELOCYTE ABSOLUTE MAN 0.19 K/mm3 (0.00-0.00); METAMYELOCYTE PERCENT MAN 2 % (0-0); MONOCYTES ABSOLUTE MAN 1.16 K/mm3 (0.16-1.47); MONOCYTES PERCENT MAN 12 % (4-13); MYELOCYTE ABSOLUTE MAN 0.19 K/mm3 (0.00-0.00); MYELOCYTE PERCENT MAN 2 % (0-0); NEUTROPHILS ABSOLUTE MAN 5.92 K/mm3 (1.96-9.15); SEG NEUTROPHILS PERCENT MAN 58 % (41-73); TOTAL CELLS COUNTED 100
--- NOTE | 2023-07-23 08:26 | NUR ---
DR. AYALA WANTS US TO HOLD THE DILTIZEM GTT AFTER THE 75MG METORPOLOL IS GIVEN. HE IS AWARE THAT THE PT'S BP IS SOFT (101/79 MAP 87).
--- NOTE | 2023-07-23 16:42 | NUR ---
SHIFT SUMMARY PT IS A&OX4 BUT HAS BEEN DROWSY THIS AFTERNOON. WE MADE SOME MEDICATION CHANGES TO BETTER CONTROL HER HR, BUT SHE WAS FEELING PRETTY LIGHTHEADED AND HAD A WHOOZY STOMACH AROUND 1300. I GOT ZOFRAN ORDERED PRN IF NEEDED. DR. AYALA WAS CALLED AROUND 1500 ABOUT THE PT'S HR TOUCHING UP TO 140. HE CAME TO SEE THE PT AND TALK TO THE FAMILY. HE RESTARTED HER XERELTO AND ORDERED PO CARDIZEM 30MG AC. PT HAS DENIED ANY ANGINA OR CHEST PRESSURE TODAY. SHE HAS BEEN ON RA AND SP02 >93% W/ NO C/O SOB. PT HAS A HX OF SEIZURES AND HER DILANTIN WAS ORDERED TO START TONIGHT. SEE NOTES FOR ANY UPDATES. FIRE IGNITION RISK HAS BEEN ASSESSED AND EDUCATION PROVIDED.
--- NOTE | 2023-07-23 17:38 | NUR ---
ASSUMPTION OF CARE: RECEIVED REPORT FROM GUIDO FORMAN AT 1700. PT ALERT AND ORIENTED X4, ABLE TO FOLLOW COMMANDS AND MAKE NEEDS KNOWN. STRENGTH WEAK EQUAL BILATERALLY. SOFT SPOKEN. BP STABLE. HR REMAINS AFIB 110-120'S. DILT DRIP REMAINS ON STANDBY. ORDERS RECIEVED FOR PO, SEE EMAR. DENIES CP/PRESSURE. +2 EDEMA NOTED IN BLE, PEDAL PULSES FAINT. PUREWICK IN PLACE, APPROX 800ML IN CANISTER. DAUGHTERS AT BEDSIDE AND UPDATED ON PT WITH PERMISSION. PT CURRENTLY IN BED EATING DINNER. BED IN LOW, CALL LIGHT IN REACH.
[2023-07-24 00:16] VITALS: BP 117/79
--- NOTE | 2023-07-24 01:39 | NUR ---
THIS RN NOTIFIED BY MARKETING OPERATIONS MANAGER THAT PT WAS SITTING AT EDGE OF BED WITH TELE STICKERS REMOVED. THIS RN TO BEDSIDE. PT SITTING AT EDGE OF BED WITH GOWN AND TELE STICKERS REMOVED AND IN HER HAND. PT ASKED WHY SHE WAS ATTEMPTING TO GET UP. PT MUMBLED NONSENSICAL WORDS. PT ASKED IF SHE KNEW WHERE SHE WAS. PT RESPONDED "I SHOULD BE AT THE HOSPITAL I GUESS." PT REOIRIENTED AND INSTRUCTED TO LAY BACK IN BED. PT AGREED AND COOPERATIVE. TELE STICKERS REPLACED AND GOWN PUT BACK ON. PT REPOSITIONED TO LEFT SIDE PER PT REQUEST. BED ALARM IN PLACE. BED IN LOWEST POSITION, CQALL LIGHT WITHIN REACH.
[2023-07-24 04:00] VITALS: BP 101/79
[2023-07-24 04:10] LABS: Hematocrit 34.3 % (33.0-51.0); Hemoglobin 11.5 g/dL (11.5-16.0); Mean Corpuscular HGB Conc 33.5 g/dL (31.5-36.5); Mean Corpuscular Volume 96 fL (80-100); Mean Platelet Volume 10.4 fL (9.1-12.4); Platelet Count 394 K/mm3 (150-400); RDW Coefficient Variation 13.7 % (11.7-14.2); RDW Standard Deviation 48.5 fL (35.1-46.3); Red Blood Cell Count 3.59 M/mm3 (3.80-5.20); White Blood Cell Count 11.68 K/mm3 (4.00-11.30)
[2023-07-24 04:54] LABS: Albumin, Blood 2.1 g/dL (3.4-5.0); Anion Gap 6 mmol/L (6-16); Blood Urea Nitrogen 18 mg/dL (8-24); Bun/Creatinine Ratio 22.6 (12.0-20.0); CO2, Blood 24 mmol/L (21-32); Chloride, Blood 106 mmol/L (98-108); Glomerular Filtration Rate 74 (60-); Glucose, Blood 105 mg/dL (70-99); Potassium, Blood 4.8 mmol/L (3.5-5.5); Sodium, Blood 136 mmol/L (136-145)
[2023-07-24 05:40] LABS: BAND PERCENT MAN 2 % (0-8); BASOPHILS PERCENT MAN 0 % (0-2); EOSINOPHILS ABSOLUTE MAN 0.11 K/mm3 (0.00-0.68); EOSINOPHILS PERCENT MAN 1 % (0-6); LYMPHOCYTES ABSOLUTE MAN 1.98 K/mm3 (0.84-5.20); LYMPHOCYTES PERCENT MAN 17 % (21-46); METAMYELOCYTE ABSOLUTE MAN 0.46 K/mm3 (0.00-0.00); METAMYELOCYTE PERCENT MAN 4 % (0-0); MONOCYTES ABSOLUTE MAN 1.75 K/mm3 (0.16-1.47); MONOCYTES PERCENT MAN 15 % (4-13); MYELOCYTE ABSOLUTE MAN 0.11 K/mm3 (0.00-0.00); MYELOCYTE PERCENT MAN 1 % (0-0); NEUTROPHILS ABSOLUTE MAN 7.24 K/mm3 (1.96-9.15); SEG NEUTROPHILS PERCENT MAN 60 % (41-73); TOTAL CELLS COUNTED 100
--- NOTE | 2023-07-24 06:22 | NUR ---
SHIFT SUMMARY PT A/OX3-4 AT BEGINNING OF SHIFT, SOME CONFUSION DURING END OF SHIFT PT WAS WAKING UP. PT HAD PERIOD OF COFUSION WHERE SHE PULLED TELE STICKERS OFF, SEE PREVIOUS NOTES. PT WAS UP TO RECLINER VIA FWW/GB AND 2 PER ASSIST AT BEGINNING OF SHIFT. PT HAD BRIEF EPISODE OF HR UP TO 150 FOR ROUGHLY 5 SEC, ASYMPTOMATIC. OTHER VSS THROUGHOUT SHIFT WITH 02 SATS IN THE 90'S ON RA. NO REPORT OF CHEST PAIN/PRESSURE THROUGHOUT SHIFT. NO REPORT OF SOB/DYSPNEA. PT INDEPENDENT IN BED.
[2023-07-24 08:33] VITALS: BP 104/85
--- NOTE | 2023-07-24 10:49 | NUR ---
PT HAS WORKED WITH PT AND OT AND BEEN UP IN CHAIR. SHE HAS HAD A SMALL BM AND COMPLAINS OF CHRONIC BACK PAIN WHEN SITTING INT HE CHAIR. PT DENIES ANY CHEST PAIN OR TIGHTNESS. CALL LIGHT IN REACH AND BED IN LOWEST POSITION. PT CALLS APPROPRIATELY.
[2023-07-24 11:39] VITALS: BP 112/79
--- NOTE | 2023-07-24 13:15 | NUR ---
PT STATED PURE WICK WAS LEAKING. PT CHANGED AND LINENS CHANGED AND PUREWICK REPOSITIONED TO SUCTION. PT REPORTED DIZZINESS, PT LAYED FLAT AND DIZZINESS PASSED. PT TOOK MEDS WHOLE WITH WATER AND HAS NO OTHER CONCERNS AT THIS TIME. CALL LIGHT IN REACH AND PT CALLS APPROPRIATELY
--- NOTE | 2023-07-24 17:37 | NUR ---
PT COUGHING EXCESSIVELY DURING DINNER. PT ABLE TO TOLERATE WATER AND PUDDING WITHOUT DIFFICULTY. WITH AN ADDITIONAL ATTEMPT WITH MECHANCAL SOFT, PT CONTNIUED TO COUGH AND HAVE DIFFICULTY SWALLOWING. PT EDUCATED ON ASP PNE RISK AND STATED UNDERSTANDING
[2023-07-24 21:15] VITALS: BP 115/84
[2023-07-24 23:17] VITALS: BP 123/103
[2023-07-25 03:37] VITALS: BP 118/89
--- NOTE | 2023-07-25 04:46 | NUR ---
SHIFT SUMMARY PT A&Ox3, CALLS AND COMMUNICATES NEEDS APPROPRIATELY, FORGETFUL AT TIMES. BP STABLE, AFIB 90-110's, DENIES CP/PRESSURE. SpO2> 92% RA, DENIES SOB. INCONTINENT OF URINE, PUREWICK IN PLACE. PT RESTED COMFORTABLY THOUGHOUT NIGHT. NO OTHER EVENTS, WILL REPORT TO ONCOMING RN.
[2023-07-25 07:50] VITALS: BP 130/89
[2023-07-25 07:53] LABS: Hematocrit 38.1 % (33.0-51.0); Hemoglobin 11.9 g/dL (11.5-16.0); Mean Corpuscular HGB 32.6 pg (26.0-34.0); Mean Corpuscular HGB Conc 31.2 g/dL (31.5-36.5); Mean Platelet Volume 9.8 fL (9.1-12.4); Platelet Count 710 K/mm3 (150-400); RDW Coefficient Variation 14.3 % (11.7-14.2); Red Blood Cell Count 3.65 M/mm3 (3.80-5.20); White Blood Cell Count 10.29 K/mm3 (4.00-11.30)
[2023-07-25 08:14] LABS: Bun/Creatinine Ratio 14.8 (12.0-20.0); Calcium, Blood 8.3 mg/dL (8.5-10.1); Creatinine, Blood 0.88 mg/dL (0.40-1.00); Potassium, Blood 4.7 mmol/L (3.5-5.5)
[2023-07-25 08:29] LABS: Mean Corpuscular Volume 104 fL (80-100)
[2023-07-25 08:49] LABS: BAND PERCENT MAN 2 % (0-8); BASOPHILS PERCENT MAN 0 % (0-2); EOSINOPHILS PERCENT MAN 1 % (0-6); LYMPHOCYTES ABSOLUTE MAN 2.05 K/mm3 (0.84-5.20); LYMPHOCYTES PERCENT MAN 20 % (21-46); METAMYELOCYTE PERCENT MAN 3 % (0-0); MONOCYTES PERCENT MAN 1 % (4-13); MYELOCYTE PERCENT MAN 1 % (0-0); NEUTROPHILS ABSOLUTE MAN 7.61 K/mm3 (1.96-9.15); SEG NEUTROPHILS PERCENT MAN 72 % (41-73); TOTAL CELLS COUNTED 100
[2023-07-25 11:53] VITALS: BP 123/93
[2023-07-25 16:41] VITALS: BP 116/91
--- NOTE | 2023-07-25 17:54 | NUR ---
PT REPORT GIVEN TO MEDICAL RN, PT TRANSFERED TO FLOOR BY MECHANICAL ASSEMBLY. PT HAS NO QUESTIONS OR CONCERNS AT TIME OF TRANSPORT.
--- NOTE | 2023-07-25 18:13 | NUR ---
TRANSFER SUMMARY: PT TX TO MEDICAL FLOOR ROOM 302. PT ARRIVED VIA WC AND TRANSFERRED WITH ONE ASSIST AND WALKER TO BED. PT ALERT AND ORIENTED X 3. PLEASANT AND COOPERATIVE. ABLE TO FOLLOW COMMANDS. PT ON RA. PT DENIES ANY NEEDS OR COMPLAINTS. CLEAN PURWICK SET UP. PT GIVEN WATER AND ORIENTED TO CALL LIGHT, ROOM, FALL PRECAUTIONS. BED ALARM SET AND IN LOW POSITION. DENIES IGNITION SOURCES.
[2023-07-25 19:42] VITALS: BP 117/79
[2023-07-26 02:30] VITALS: BP 135/83
--- NOTE | 2023-07-26 04:05 | NUR ---
SHIFT SUMMARY LIZ WAS ALERT AND FULLY ORIENTED AT THE START OF SHIFT, HOWEVER SHE SEEMS TO HAVE DIFFICULTY FOCUSING AND SOME MILD MEMORY DEFICITS. PT IS PLEASANT AND COOPERATIVE. SHE HAD NO ACUTE EVENTS THIS SHIFT. SHE WAS COMPLAINING OF LOW BACK PAIN THAT WAS UNRESOLVED BY TYLENOL, DR. TEJEDA PROVIDED ORDERS FOR PRN FENTANYL WHICH THE PATIENT STATED WAS VERY EFFECTIVE. PT STRUGGLES TO SLEEP, AND CALLS OUT LOUDLY IN HER SLEEP. PT IS CURRENTLY RESTING IN BED WITH THE CALL LIGHT IN REACH.
[2023-07-26 05:25] LABS: Bun/Creatinine Ratio 16.1 (12.0-20.0); Calcium, Blood 8.7 mg/dL (8.5-10.1); Creatinine, Blood 0.93 mg/dL (0.40-1.00); Potassium, Blood 4.4 mmol/L (3.5-5.5)
[2023-07-26 06:10] LABS: Hematocrit 40.3 % (33.0-51.0); Hemoglobin 13.2 g/dL (11.5-16.0); Mean Corpuscular HGB 31.7 pg (26.0-34.0); Mean Corpuscular HGB Conc 32.8 g/dL (31.5-36.5); Mean Platelet Volume 9.8 fL (9.1-12.4); Platelet Count 439 K/mm3 (150-400); RDW Standard Deviation 49.4 fL (35.1-46.3); Red Blood Cell Count 4.17 M/mm3 (3.80-5.20); White Blood Cell Count 11.04 K/mm3 (4.00-11.30)
[2023-07-26 06:12] LABS: Mean Corpuscular Volume 97 fL (80-100)
[2023-07-26 06:32] LABS: BASOPHILS PERCENT MAN 0 % (0-2); EOSINOPHILS ABSOLUTE MAN 0.22 K/mm3 (0.00-0.68); EOSINOPHILS PERCENT MAN 2 % (0-6); LYMPHOCYTES ABSOLUTE MAN 2.87 K/mm3 (0.84-5.20); LYMPHOCYTES PERCENT MAN 26 % (21-46); METAMYELOCYTE ABSOLUTE MAN 0.11 K/mm3 (0.00-0.00); METAMYELOCYTE PERCENT MAN 1 % (0-0); MONOCYTES ABSOLUTE MAN 0.77 K/mm3 (0.16-1.47); MONOCYTES PERCENT MAN 7 % (4-13); MYELOCYTE PERCENT MAN 10 % (0-0); NEUTROPHILS ABSOLUTE MAN 5.96 K/mm3 (1.96-9.15); SEG NEUTROPHILS PERCENT MAN 54 % (41-73); TOTAL CELLS COUNTED 100
[2023-07-26 07:37] VITALS: BP 119/73
[2023-07-26] MEDS ORDERED: METO100ER PO (11:09)
[2023-07-26] MEDS ORDERED: DILT30 PO (11:10)
[2023-07-26 14:46] VITALS: BP 116/72
[2023-07-26 15:20] LABS: Influenza A, PCR NEGATIVE (NEGATIVE); Influenza B, PCR NEGATIVE (NEGATIVE); Resp Syncytial Virus, PCR NEGATIVE (NEGATIVE); SARS-Cov-2 (COVID-19) PCR, MMC NEGATIVE (NEGATIVE)
--- NOTE | 2023-07-26 17:54 | NUR ---
DISCHARGE NOTE PT DISCHARGED TO [facility], REPORT GIVEN TO NURSE ONIEL. PACKET PROVIDED TO THE DATA ENTRY ASSOCIATE. PG REMOVED COMPLETELY. PERSONAL BELONGINGS RETURNED.
== END 2023-07-26 17:51 | DRG 872 ==
LOC: ER 00:08 → ERHOLD 11:52 → MEDS 18:26 → PCU 07-23 00:09 → MEDS 07-25 18:01 → ENPENDDIS 07-26 10:56 → MEDS 07-26 17:51
PROVIDERS: Emergency Medicine; Internal Medicine; ADMIT Family Medicine
DX: A41.51 Sepsis due to Escherichia coli [E. coli] (principal); N39.0 Urinary tract infection, site not specified; E86.0 Dehydration; E03.9 Hypothyroidism, unspecified; E78.5 Hyperlipidemia, unspecified; I10 Essential (primary) hypertension; K21.9 Gastro-esophageal reflux disease without esophagitis; M19.90 Unspecified osteoarthritis, unspecified site; M81.0 Age-related osteoporosis without current pathological fracture; G40.909 Epilepsy, unspecified, not intractable, without status epilepticus; B96.20 Unspecified Escherichia coli [E. coli] as the cause of diseases classified elsewhere; I48.91 Unspecified atrial fibrillation; Z20.822 Contact with and (suspected) exposure to COVID-19; Z90.49 Acquired absence of other specified parts of digestive tract; Z88.0 Allergy status to penicillin; Z79.890 Hormone replacement therapy; Z79.01 Long term (current) use of anticoagulants; Z79.899 Other long term (current) drug therapy; Z98.890 Other specified postprocedural states
CPT/HCPCS: 0241U; 36415; 71045; 71046; 80048; 80053; 80069; 81001; 83605; 83735; 83880; 84100; 84484; 85007; 85025; 85027; 87040; 87077; 87086; 87186; 92526; 92610; 93005; 93010; 93306; 94640; 94664; 94760; 96361; 96365; 96366; 97110; 97110-CQ; 97116; 97116-CQ; 97161; 97166; 97530; 97535; 99285-25; A9270; C1751; J0692; J0696; J1644; J1940; J2270; J3010; J3475; J3480; J7030; J7050; J7120

== ENCOUNTER → 2023-08-18 | Outpatient (CLI) | payer MEDICARE, OTHER ==
[~2023-08-18] MED LIST changes: +DILT30 PO; +ERGO50000 PO; +METO100ER PO
== END | disposition home or self-care (01) ==
LOC: LAB 17:59 → LAB SHORT 17:59
DX: R30.0 Dysuria (principal)
CPT/HCPCS: 87077; 87086; 87186

== ENCOUNTER → 2023-09-04 | Outpatient (CLI) | payer MEDICARE, OTHER | LOC: LAB 16:00 → LAB SHORT 16:00 | DX: R30.0 Dysuria (principal) | CPT/HCPCS: 87086 ==

== ENCOUNTER 2024-02-06 11:25 | Inpatient (IN) | payer MEDICARE, OTHER ==
[~2024-02-06] VITALS: Ht 147.3 cm; Wt 80.9 kg
[2024-02-06] VITALS (27 sets, daily range): BP systolic 68–128; BP diastolic 44–87
[2024-02-06] MEDS ORDERED: NS 1,000 ML IV SCH ×4 (11:40→20:55)
[2024-02-06 12:33] LABS: Source, Urine Clean Catch
[2024-02-06 12:36] LABS: BASOPHILS ABSOLUTE AUTO 0.02 K/mm3 (0.00-0.23); BASOPHILS PERCENT AUTO 0 % (0-2); EOSINOPHILS ABSOLUTE AUTO 0.04 K/mm3 (0.00-0.68); EOSINOPHILS PERCENT AUTO 0 % (0-6); Hemoglobin 13.1 g/dL (11.5-16.0); IMMATURE GRAN ABSOLUTE AUTO 0.02 K/mm3 (0.00-0.10); IMMATURE GRAN PERCENT AUTO 0 % (0-1); LYMPHOCYTES ABSOLUTE AUTO 1.79 K/mm3 (0.84-5.20); LYMPHOCYTES PERCENT AUTO 17 % (21-46); MONOCYTES ABSOLUTE AUTO 1.06 K/mm3 (0.16-1.47); MONOCYTES PERCENT AUTO 10 % (4-13); Mean Corpuscular HGB 33.1 pg (26.0-34.0); Mean Corpuscular HGB Conc 32.8 g/dL (31.5-36.5); Mean Corpuscular Volume 101 fL (80-100); Mean Platelet Volume 9.7 fL (9.1-12.4); NEUTROPHILS ABSOLUTE AUTO 7.38 K/mm3 (1.96-9.15); NEUTROPHILS PERCENT AUTO 72 % (41-73); Platelet Count 254 K/mm3 (150-400); RDW Coefficient Variation 13.7 % (11.7-14.2); RDW Standard Deviation 51.8 fL (35.1-46.3); Red Blood Cell Count 3.96 M/mm3 (3.80-5.20); White Blood Cell Count 10.31 K/mm3 (4.00-11.30)
[2024-02-06 12:40] LABS: Appearance, Urine Hazy (Clear); Bilirubin, Urine Neg (Neg); Blood, Urine 1+ (Neg); Color, Urine Yellow (P-Yellow); Glucose Qualitative, Urine Neg (Neg); Ketones, Urine Neg (Neg); Leukocyte Esterase, Urine 3+ (Neg); Nitrite, Urine Pos (Neg); Protein, Urine Neg (Neg); Urobilinogen, Urine NORM (Normal)
[2024-02-06 12:45] LABS: Albumin, Blood 3.9 g/dL (3.4-5.0); Albumin/Globulin Ratio 1.1 (0.8-1.8); Bilirubin, Total 0.6 mg/dL (0.1-1.0); Bun/Creatinine Ratio 31.6 (12.0-20.0); Calcium, Blood 8.8 mg/dL (8.5-10.1); Creatinine, Blood 1.33 mg/dL (0.40-1.00); Globulin, Blood 3.4 g/dL (2.2-4.0); Potassium, Blood 5.2 mmol/L (3.5-5.5); Total Protein, Blood 7.3 g/dL (6.4-8.2)
[2024-02-06 12:50] LABS: Bacteria Many /hpf; Squamous Epithelial Cells Rare /hpf (Few); White Blood Cells, Urine TNTC /hpf (0-5)
[2024-02-06] MEDS ORDERED: GABA300 PO (13:30)
[2024-02-06] MEDS ORDERED: HYDR1TAB94 PO (13:31)
[2024-02-06] MEDS ORDERED: Lisinopril2.5 MG PO (13:33)
[2024-02-06] MEDS ORDERED: POTA10T PO (13:34)
[2024-02-06] MEDS ORDERED: [UNRECOGNIZED DRUG - CODE] (13:34)
[2024-02-06] MEDS ORDERED: PANT40 PO (13:34)
[2024-02-06] MEDS ORDERED: Ultram50 MG PO (13:35)
[2024-02-06] MEDS ORDERED: FAMO20 PO (13:36)
[2024-02-06] MEDS ORDERED: LevoFLOXacin 750 MG/D5W 150ML 150 ML IV ONE (13:40)
[2024-02-06] MEDS ORDERED: HYDROcodone 5-APAP 325 TAB PO PRN (17:35)
--- NOTE | 2024-02-06 19:03 | NUR ---
ASSUMPTION OF CARE/ SHIFT SUMMARY PATIENT ARRIVED TO ICU AROUND 171. PATIENT ALERT AND ORIENTED X 4, PLEASANT AND COOPERATIVE. PATIENT AFEBRILE. PATIENT GIVEN PRN NORCO FOR COMPLAINTS OF CHRONIC BACK PAIN. PATIENT HAS REMAINED SATTING 90% AND GREATER ON RA. PATIENT HAS REMAINED IN A. FIB, HR 90S TO LOW 100S. SBP 80S TO 120S. ANTI EMBOLISM STOCKINGS PLACED THIS SHIFT. PATIENT ATE GOOD DINNER. PATIENT HAD 700 MLS OF YELLOW COLORED URINE FROM PUREWICK. NS INFUSING AT 125 MLS/ HOUR. PG PLACED TO L UA. PATIENT DIFFICULT STICK. LEVOPHED ON EMAR IF NEEDED. PATIENT'S GRANDDAUGHTER AT BEDSIDE. PATIENT ORIENTED TO UNIT, ROOM AND CALL LIGHT. BED LOW, CALL LIGHT IN REACH. REPORT GIVEN TO ASSUMING CARPET TILE LAYER RN.
--- NOTE | 2024-02-06 20:40 | NUR ---
BEDSIDE SHIFT REPORT FROM NETTA, PT VISITING W GRANDDAUGHTER AT BEDSIDE. GRANDDAUGHTER STATES PT PREVIOUSLY HAD BEEN DNR STATUS, WANTING TREATMENTS BUT NO CPR DEFIB OR INTUBATION. PT IS ALERT, ON RA, BP CONT SOFT. WILL CONT TO MONITOR
--- NOTE | 2024-02-06 20:49 | NUR ---
DR AYALA BY TO CHECK ON PT, ORDERS REC'D FOR DNR. WILL TRY DOSE OF MIDODRINE BEFORE STARTING LEVOPHED.
[2024-02-06] MEDS ORDERED: Midodrine 5 MG Tab PO ONE (20:55)
[2024-02-06] MEDS ORDERED: Famotidine 20 MG Tab PO SCH (21:00)
[2024-02-06] MEDS ORDERED: Gabapentin 300 MG Cap PO SCH (21:00)
[2024-02-06] MEDS ORDERED: Atorvastatin 10 MG Tab PO SCH (21:00)
[2024-02-07] VITALS (40 sets, daily range): BP systolic 85–129; BP diastolic 57–95
--- NOTE | 2024-02-07 04:14 | NUR ---
PT SLEEPING SOUNDLY AT THIS TIME W HOB ELEVATED. MIDODRINE ONE TIME DOSE W GOOD RESULTS. PT COMPLAINING OF DISCOMFORT FROM CINDI HOSE, REMOVED AND SCD'S PLACED, PT MARCELINA WELL.
[2024-02-07 04:27] LABS: BASOPHILS ABSOLUTE AUTO 0.02 K/mm3 (0.00-0.23); BASOPHILS PERCENT AUTO 0 % (0-2); EOSINOPHILS ABSOLUTE AUTO 0.15 K/mm3 (0.00-0.68); EOSINOPHILS PERCENT AUTO 2 % (0-6); Hematocrit 34.9 % (33.0-51.0); Hemoglobin 11.3 g/dL (11.5-16.0); IMMATURE GRAN ABSOLUTE AUTO 0.02 K/mm3 (0.00-0.10); IMMATURE GRAN PERCENT AUTO 0 % (0-1); LYMPHOCYTES ABSOLUTE AUTO 1.76 K/mm3 (0.84-5.20); LYMPHOCYTES PERCENT AUTO 24 % (21-46); MONOCYTES ABSOLUTE AUTO 0.97 K/mm3 (0.16-1.47); MONOCYTES PERCENT AUTO 13 % (4-13); Mean Corpuscular HGB 32.8 pg (26.0-34.0); Mean Corpuscular HGB Conc 32.4 g/dL (31.5-36.5); Mean Corpuscular Volume 101 fL (80-100); Mean Platelet Volume 9.9 fL (9.1-12.4); NEUTROPHILS ABSOLUTE AUTO 4.58 K/mm3 (1.96-9.15); NEUTROPHILS PERCENT AUTO 61 % (41-73); Platelet Count 210 K/mm3 (150-400); RDW Coefficient Variation 13.9 % (11.7-14.2); RDW Standard Deviation 51.5 fL (35.1-46.3); Red Blood Cell Count 3.45 M/mm3 (3.80-5.20)
[2024-02-07 04:59] LABS: Albumin, Blood 3.1 g/dL (3.4-5.0); Anion Gap 8 mmol/L (3-11); Blood Urea Nitrogen 32 mg/dL (8-24); Bun/Creatinine Ratio 28.1 (12.0-20.0); CO2, Blood 25 mmol/L (21-32); Calcium, Blood 8.1 mg/dL (8.5-10.1); Chloride, Blood 114 mmol/L (98-108); Creatinine, Blood 1.14 mg/dL (0.40-1.00); Glomerular Filtration Rate 48 (60-); Glucose, Blood 96 mg/dL (70-99); Magnesium, Blood 1.8 mg/dL (1.6-2.4); Phosphorus, Blood 2.8 mg/dL (2.5-4.9); Potassium, Blood 5.1 mmol/L (3.5-5.5); Sodium, Blood 142 mmol/L (136-145)
[2024-02-07] MEDS ORDERED: Levothyroxine Sodium 0.175 MG TAB PO SCH (06:00)
--- NOTE | 2024-02-07 06:15 | NUR ---
PT SLEPT WELL TONIGHT, SHE HAD "WARNED" ME THAT SHE SOMETIMES SCREAMS DURING HER SLEEP, AND HAS EVEN PULLED AN IV OUT ON LAST ADMIT. PT WAS STILL SLEEPING SOUNDLY WHEN TIME FOR AM WEIGHT, IV TUBING FOUND WRAPPED AROUND HER ARM & IV PULLED OUT, CATH INTACT. PT STATED SHE HAD BEEN CALLING AND ASKING SOMEONE TO BRING HER CORN. AWAKE NOW, AND ORIENTED. LINENS CHANGED. BP HAS BEEN STABLE AFTER MIDODRINE DOSE. GOOD URINE OUTPUT. DENIES PAIN THIS AM, AND HAS REFUSED PRN MED. CONT AFIB W OCCAS PVC. CALL LIGHT IN REACH, BED LOW POSITION.
--- NOTE | 2024-02-07 07:13 | NUR ---
DR. AYALA HERE TO SEE PATIENT. ORDERS RECEIVED.
--- NOTE | 2024-02-07 08:45 | NUR ---
INITIAL ASSESSMENT PATIENT ALERT AND ORIENTED X 4, AFEBRILE. PATIENT HAS CHRONIC BACK PAIN BUT STATES THAT PAIN IS MANAGEABLE AT THIS TIME. PATIENT WEAK BUT ABLE TO MOVE ALL EXTREMITIES. PATIENT NEEDS ASSISTANCE WITH REPOSITIONING. PATIENT SATTING 90% AND GREATER ON RA. PATIENT IN A. FIB WITH PVCS, HR 80S TO 90S. SBP 80S TO LOW 100S. PATIENT STARTED ON MIDODRINE THIS AM. 2+ EDEMA NOTED TO BLES. SCDS IN PLACE. GI WNL. GOOD APPETITE. DATE OF LAST BM UNKNOWN. PUREWICK IN PLACE DRAINING YELLOW COLORED URINE. SCATTERED BRUISES NOTED T/O BODY. NS TKO. BED LOW, CALL LIGHT IN REACH. CARE CONTINUES.
[2024-02-07] MEDS ORDERED: Folic Acid 1 MG TAB PO SCH (09:00)
[2024-02-07] MEDS ORDERED: Gabapentin 300 MG Cap PO SCH (09:00)
[2024-02-07] MEDS ORDERED: Midodrine 5 MG Tab PO SCH (09:00)
[2024-02-07] MEDS ORDERED: Metoprolol Succinate 50 MG TABCR PO SCH (09:00)
[2024-02-07] MEDS ORDERED: CefTRIAXone Sodium 1,000 MG in NS 100 ML IV SCH (09:00)
[2024-02-07] MEDS ORDERED: Rivaroxaban 10 MG Tab PO SCH (09:00)
[2024-02-07] MEDS ORDERED: MIRALAX17 GM PO (10:37)
[2024-02-07] MEDS ORDERED: CHOLESTYRAMI239.4 G5 PO (10:41)
--- NOTE | 2024-02-07 12:40 | NUR ---
PATIENT AFEBRILE. HR IN THE 90S. SBP IN THE 120S. NO OTHER ACUTE CHANGES TO NOTE ON AT THIS TIME. NO COMPLAINTS. CARE CONTINUES.
--- NOTE | 2024-02-07 15:25 | NUR ---
PATIENT AFEBRILE. HR IN THE 80S. SBP IN THE 120S. NO OTHER ACUTE CHANGES TO NOTE ON AT THIS TIME. NO COMPLAINTS. CARE CONTINUES.
--- NOTE | 2024-02-07 16:44 | NUR ---
SHIFT SUMMARY PATIENT REMAINED ALERT AND ORIENTED X 4, AFEBRILE. PATIENT HAD NO COMPLAINTS OF PAIN THIS SHIFT. PATIENT WEAK BUT ABLE TO AMBULATE WITH FWW AND 1 PERSON ASSIST. PATIENT REMAINED SATTING 90% AND GREATER ON RA. PATIENT REMAINED IN A. FIB WITH PVCS, HR 80S TO 90S. SBP 80S TO 120S. MIDODRINE ORDERED THIS AM TID. SCDS HAVE REMAINED IN PLACE WITH SMALL BREAKS WHEN AMBULATING. PATIENT HAD GOOD APPETITE. PATIENT HAD A BOWEL MOVEMENT THIS SHIFT. PATIENT HAD 950 MLS OF URINE OUT FROM PUREWICK THIS SHIFT. NO CHANGES TO SKIN NOTED. PATIENT HAD COMPLETE BED BATH THIS SHIFT. PT AND OT WORKED WITH PATIENT THIS SHIFT. MED REC COMPLETED THIS SHIFT. PATIENT BEING MOVED OUT TO PCU ROOM 20. FAMILY HAS BEEN INFORMED.
--- NOTE | 2024-02-07 17:04 | NUR ---
Assumed care at approximately 1700. Report received from BORING MILL OPERATOR. Pt arrived in PCU via wheelchair. Able to stand and ambulate to bed with one person standby assist. VS stable, pt alert and oriented. Will continue to monitor.
--- NOTE | 2024-02-07 17:05 | NUR ---
PATIENT TRANSFER COMPLETE TO PCU 20. ALL BELONGINGS SENT WITH PATIENT. FAMILY AWARE OF TRANSFER.
--- NOTE | 2024-02-07 18:40 | NUR ---
Shift summary. No acute events since arriving to PCU. See chart for further details. Will report off to nightshift RN.
[2024-02-07] MEDS ORDERED: Famotidine 20 MG Tab PO SCH (21:00)
[2024-02-08] VITALS (9 sets, daily range): BP systolic 95–136; BP diastolic 50–79
[2024-02-08 05:02] LABS: BASOPHILS ABSOLUTE AUTO 0.02 K/mm3 (0.00-0.23); BASOPHILS PERCENT AUTO 0 % (0-2); EOSINOPHILS ABSOLUTE AUTO 0.24 K/mm3 (0.00-0.68); EOSINOPHILS PERCENT AUTO 3 % (0-6); Hematocrit 36.2 % (33.0-51.0); Hemoglobin 11.8 g/dL (11.5-16.0); IMMATURE GRAN ABSOLUTE AUTO 0.03 K/mm3 (0.00-0.10); IMMATURE GRAN PERCENT AUTO 0 % (0-1); LYMPHOCYTES ABSOLUTE AUTO 2.44 K/mm3 (0.84-5.20); LYMPHOCYTES PERCENT AUTO 29 % (21-46); MONOCYTES ABSOLUTE AUTO 0.88 K/mm3 (0.16-1.47); MONOCYTES PERCENT AUTO 10 % (4-13); Mean Corpuscular HGB 33.3 pg (26.0-34.0); Mean Corpuscular HGB Conc 32.6 g/dL (31.5-36.5); Mean Corpuscular Volume 102 fL (80-100); Mean Platelet Volume 10.1 fL (9.1-12.4); NEUTROPHILS ABSOLUTE AUTO 4.84 K/mm3 (1.96-9.15); NEUTROPHILS PERCENT AUTO 57 % (41-73); Platelet Count 220 K/mm3 (150-400); RDW Coefficient Variation 13.8 % (11.7-14.2); RDW Standard Deviation 52.7 fL (35.1-46.3); Red Blood Cell Count 3.54 M/mm3 (3.80-5.20); White Blood Cell Count 8.45 K/mm3 (4.00-11.30)
[2024-02-08 05:10] LABS: Anion Gap 9 mmol/L (3-11); Blood Urea Nitrogen 34 mg/dL (8-24); Bun/Creatinine Ratio 31.2 (12.0-20.0); CO2, Blood 26 mmol/L (21-32); Calcium, Blood 8.5 mg/dL (8.5-10.1); Chloride, Blood 113 mmol/L (98-108); Creatinine, Blood 1.09 mg/dL (0.40-1.00); Glomerular Filtration Rate 51 (60-); Glucose, Blood 104 mg/dL (70-99); Phosphorus, Blood 2.5 mg/dL (2.5-4.9); Potassium, Blood 5.2 mmol/L (3.5-5.5); Sodium, Blood 143 mmol/L (136-145)
--- NOTE | 2024-02-08 06:08 | NUR ---
SHIFT SUMMARY PT A&Ox3-4, CONFUSED AT TIMES, COMMUNICATES NEEDS APPROPRIATELY. PT YELLS IN HER SLEEP. BP STABLE, AFIB 70-90's, DENIES CP/PRESSURE. SpO2> 92% RA, DENIES SOB. INCONTINENT/CONTINENT, PUREWICK IN PLACE. DENIES PAIN. NO OTHER EVENTS, WILL REPORT TO ONCOMING RN.
--- NOTE | 2024-02-08 11:02 | NUR ---
AM NOTE this rn assumed care at 0700. vital signs stable. at the start of shift tele in place afib in the 70-80s, and then switched to medical status no tele. tele removed, at the time of removal remaind afib in the 70-80 range. patient is alert and oriented x4. perrla able to make needs known. neuro is intact. patient is one person assist with fron wheel walker to bedside comode. patient denies chest pain/pressure, pain or shortness of breath. see shift assessment for further detials. md burden in to see patient this am. plan of care is up to date
--- NOTE | 2024-02-08 17:11 | NUR ---
shift summary/report to medical floor rn patient neuro remains intact. vitals remain stable. patient up in room and walked around with front wheel walker and one person assist. patient denies pain, chest pain/pressure or shortness of breath. patient daughter in room and updated on moving to room 330. this rn gave reprot to angelique on medical floor.
--- NOTE | 2024-02-08 18:11 | NUR ---
pt just arrived via wheelchair from pcu, she was able to stand and ambulate slowly to the bed from chair with a gait belt, daughter in attendence. pt doing ok, got her settled in bed with call light in reach.
[2024-02-09 03:30] VITALS: BP 113/80
--- NOTE | 2024-02-09 05:31 | NUR ---
SHIFT SUMMARY: PATIENT A AND O X 3-4, LESSENED LATER IN EVENING.PLEASANT AND TALKATIVE, ABLE TO DESCRIBE HEALTH. ADMITS TO "FALLING A LOT" AT HOME. INCONTINENCE ISSUES, ONE PERSON TRANSFER [facility] GAIT BELT AND WALKER, AT PATIENT REQUEST, BRIEF AT ALL TIMES WITH PUREWICK DURING NIGHT. POWERGLIDE TO LEFT UPPER ARM. ROCEPHIN QD FOR UTI WITH E COLI. REGULAR DIET, FEEDS SELF. +2 BILATERAL LOWER EDEMA NOTED. NO COMPLAINTS OF PAIN.
[2024-02-09 06:11] LABS: BASOPHILS ABSOLUTE AUTO 0.04 K/mm3 (0.00-0.23); BASOPHILS PERCENT AUTO 1 % (0-2); EOSINOPHILS ABSOLUTE AUTO 0.25 K/mm3 (0.00-0.68); EOSINOPHILS PERCENT AUTO 4 % (0-6); Hematocrit 34.4 % (33.0-51.0); Hemoglobin 11.2 g/dL (11.5-16.0); IMMATURE GRAN ABSOLUTE AUTO 0.02 K/mm3 (0.00-0.10); IMMATURE GRAN PERCENT AUTO 0 % (0-1); LYMPHOCYTES ABSOLUTE AUTO 2.05 K/mm3 (0.84-5.20); LYMPHOCYTES PERCENT AUTO 29 % (21-46); MONOCYTES ABSOLUTE AUTO 0.76 K/mm3 (0.16-1.47); MONOCYTES PERCENT AUTO 11 % (4-13); Mean Corpuscular HGB 33.3 pg (26.0-34.0); Mean Corpuscular HGB Conc 32.6 g/dL (31.5-36.5); Mean Corpuscular Volume 102 fL (80-100); Mean Platelet Volume 9.9 fL (9.1-12.4); NEUTROPHILS ABSOLUTE AUTO 3.89 K/mm3 (1.96-9.15); NEUTROPHILS PERCENT AUTO 56 % (41-73); Platelet Count 216 K/mm3 (150-400); RDW Standard Deviation 52.8 fL (35.1-46.3); Red Blood Cell Count 3.36 M/mm3 (3.80-5.20); White Blood Cell Count 7.01 K/mm3 (4.00-11.30)
[2024-02-09 06:43] LABS: Albumin, Blood 2.8 g/dL (3.4-5.0); Anion Gap 10 mmol/L (3-11); Blood Urea Nitrogen 33 mg/dL (8-24); Bun/Creatinine Ratio 40.1 (12.0-20.0); CO2, Blood 23 mmol/L (21-32); Calcium, Blood 8.5 mg/dL (8.5-10.1); Chloride, Blood 113 mmol/L (98-108); Creatinine, Blood 0.82 mg/dL (0.40-1.00); Glomerular Filtration Rate 72 (60-); Glucose, Blood 99 mg/dL (70-99); Phosphorus, Blood 2.7 mg/dL (2.5-4.9); Potassium, Blood 4.8 mmol/L (3.5-5.5); Sodium, Blood 141 mmol/L (136-145)
[2024-02-09 07:25] VITALS: BP 128/67
[2024-02-09 14:47] VITALS: BP 132/93
[2024-02-09] MEDS ORDERED: Dilantin 100 m100 MG PO (15:56)
[2024-02-09] MEDS ORDERED: MIDO5 PO (15:57)
[2024-02-09] MEDS ORDERED: XARELTO20 MG PO (15:57)
[2024-02-09] MEDS ORDERED: SULTRIDS PO (15:58)
== END 2024-02-09 17:02 | disposition home health service (06) | DRG 872 ==
LOC: ER 11:25 → PCU 14:42 → ICUE 17:16 → PCU 02-07 16:58 → MEDS 02-08 18:04
PROVIDERS: Physician Assistant; ADMIT Family Medicine
PROC: 3E03329 Introduction of Other Anti-infective into Peripheral Vein, Percutaneous Approach (ICD-10-PCS; principal; 2024-02-06)
PROC: 3E033XZ Introduction of Vasopressor into Peripheral Vein, Percutaneous Approach (ICD-10-PCS; 2024-02-06)
DX: A41.51 Sepsis due to Escherichia coli [E. coli] (principal); N39.0 Urinary tract infection, site not specified; I48.91 Unspecified atrial fibrillation; N28.9 Disorder of kidney and ureter, unspecified; G40.909 Epilepsy, unspecified, not intractable, without status epilepticus; E03.9 Hypothyroidism, unspecified; E78.5 Hyperlipidemia, unspecified; I10 Essential (primary) hypertension; K21.9 Gastro-esophageal reflux disease without esophagitis; I95.9 Hypotension, unspecified; M19.90 Unspecified osteoarthritis, unspecified site; M81.0 Age-related osteoporosis without current pathological fracture; Z79.01 Long term (current) use of anticoagulants; Z79.899 Other long term (current) drug therapy; Z79.890 Hormone replacement therapy; Z79.891 Long term (current) use of opiate analgesic; Z88.0 Allergy status to penicillin; Z90.49 Acquired absence of other specified parts of digestive tract
CPT/HCPCS: 36415; 80053; 80069; 81001; 83605; 83735; 85025; 87040; 87077; 87086; 87186; 93005; 93010; 96361; 96365; 97116; 97161; 97165; 97530; 99285-25; A9270; C1751; J0696; J1956; J7030

== ENCOUNTER 2024-02-23 17:32 | Inpatient (IN) | payer MEDICARE, OTHER ==
[~2024-02-23] VITALS: Ht 162.6 cm; Wt 87.0 kg
[2024-02-25 16:42] VITALS: BP 126/94
== END 2024-02-25 17:20 | disposition home or self-care (01) | DRG 683 ==
LOC: ER 17:32 → PCU 21:05
PROVIDERS: ADMIT Student in an Organized Health Care Education/Training Program
DX: N17.9 Acute kidney failure, unspecified (principal); A04.72 Enterocolitis due to Clostridium difficile, not specified as recurrent; E87.5 Hyperkalemia; G40.909 Epilepsy, unspecified, not intractable, without status epilepticus; I48.91 Unspecified atrial fibrillation; I95.9 Hypotension, unspecified; G89.4 Chronic pain syndrome; E86.0 Dehydration; E03.9 Hypothyroidism, unspecified; K21.9 Gastro-esophageal reflux disease without esophagitis; E78.5 Hyperlipidemia, unspecified; I10 Essential (primary) hypertension; M81.0 Age-related osteoporosis without current pathological fracture; Z98.890 Other specified postprocedural states; Z88.0 Allergy status to penicillin; Z79.899 Other long term (current) drug therapy; Z79.01 Long term (current) use of anticoagulants; Z79.890 Hormone replacement therapy; Z90.49 Acquired absence of other specified parts of digestive tract

== ENCOUNTER → 2024-04-24 | Outpatient (CLI) | payer MEDICARE, OTHER ==
[~2024-04-24] MED LIST changes: +CHOLESTYRAMI239.4 G5 PO; +GABA300 PO; +HYDR1TAB94 PO; +MIDO5 PO; +MIRALAX17 GM PO; +POTA10T PO; +SULTRIDS PO; +Ultram50 MG PO; +[UNRECOGNIZED DRUG - CODE]
== END ==
LOC: LAB SHORT 17:45 → LAB 17:45
DX: H10.31 Unspecified acute conjunctivitis, right eye (principal)
CPT/HCPCS: 87070; 87077; 87186; 87205

== ENCOUNTER 2024-06-19 16:40 | Emergency (ER) | payer MEDICARE, OTHER ==
[~2024-06-19] VITALS: Ht 154.9 cm; Wt 68.0 kg
[2024-06-19 17:09] VITALS: BP 118/78
[2024-06-19 17:18] LABS: Source, Urine Straight Cath
[2024-06-19 17:22] LABS: Appearance, Urine Clear (Clear); Bilirubin, Urine Neg (Neg); Blood, Urine 1+ (Neg); Glucose Qualitative, Urine Neg (Neg); Ketones, Urine Neg (Neg); Leukocyte Esterase, Urine Neg (Neg); Nitrite, Urine Neg (Neg); Protein, Urine Neg (Neg); Urobilinogen, Urine NORM (Normal)
[2024-06-19 17:32] LABS: Color, Urine Pale Yellow (P-Yellow)
[2024-06-19 17:33] LABS: Bacteria Rare /hpf; Hyaline Casts 0-2 /lpf (0-2); Red Blood Cells, Urine 0-2 /hpf (0-2); Squamous Epithelial Cells Rare /hpf (Few); White Blood Cells, Urine 0-2 /hpf (0-5)
[2024-06-19 17:44] LABS: BASOPHILS ABSOLUTE AUTO 0.04 K/mm3 (0.00-0.23); BASOPHILS PERCENT AUTO 0 % (0-2); EOSINOPHILS ABSOLUTE AUTO 0.08 K/mm3 (0.00-0.68); EOSINOPHILS PERCENT AUTO 1 % (0-6); Hematocrit 42.4 % (33.0-51.0); Hemoglobin 13.8 g/dL (11.5-16.0); IMMATURE GRAN ABSOLUTE AUTO 0.04 K/mm3 (0.00-0.10); IMMATURE GRAN PERCENT AUTO 0 % (0-1); LYMPHOCYTES ABSOLUTE AUTO 2.17 K/mm3 (0.84-5.20); LYMPHOCYTES PERCENT AUTO 19 % (21-46); MONOCYTES ABSOLUTE AUTO 0.96 K/mm3 (0.16-1.47); MONOCYTES PERCENT AUTO 9 % (4-13); Mean Corpuscular HGB 31.9 pg (26.0-34.0); Mean Corpuscular HGB Conc 32.5 g/dL (31.5-36.5); Mean Corpuscular Volume 98 fL (80-100); Mean Platelet Volume 9.3 fL (9.1-12.4); NEUTROPHILS ABSOLUTE AUTO 7.99 K/mm3 (1.96-9.15); NEUTROPHILS PERCENT AUTO 71 % (41-73); Platelet Count 307 K/mm3 (150-400); RDW Coefficient Variation 12.9 % (11.7-14.2); RDW Standard Deviation 46.3 fL (35.1-46.3); Red Blood Cell Count 4.33 M/mm3 (3.80-5.20); White Blood Cell Count 11.28 K/mm3 (4.00-11.30)
[2024-06-19 18:08] LABS: Magnesium, Blood 2.3 mg/dL (1.6-2.4)
[2024-06-19 18:27] LABS: Albumin, Blood 3.5 g/dL (3.4-5.0); Bilirubin, Total 0.6 mg/dL (0.1-1.0); Bun/Creatinine Ratio 18.8 (12.0-20.0); Calcium, Blood 9.3 mg/dL (8.5-10.1); Creatinine, Blood 2.07 mg/dL (0.40-1.00); Globulin, Blood 3.4 g/dL (2.2-4.0); Potassium, Blood 4.2 mmol/L (3.5-5.5); Thyroid Stimulating Hormone 0.036 uIU/mL (0.360-4.800); Total Protein, Blood 6.9 g/dL (6.4-8.2)
[2024-06-19] MEDS ORDERED: NS 1,000 ML IV SCH ×2 (18:35)
[2024-06-19] MEDS ORDERED: CefTRIAXone Sodium 1,000 MG in NS 100 ML IV ONE (18:45)
[2024-06-19 18:51] LABS: Influenza A, PCR NEGATIVE (NEGATIVE); Influenza B, PCR NEGATIVE (NEGATIVE); Resp Syncytial Virus, PCR NEGATIVE (NEGATIVE); SARS-Cov-2 (COVID-19) PCR, MMC NEGATIVE (NEGATIVE)
[2024-06-19] MEDS ORDERED: CEFD300 PO (18:57)
== END 2024-06-19 19:25 | disposition home or self-care (01) ==
LOC: ER 16:40
PROVIDERS: Emergency Medicine
DX: N39.0 Urinary tract infection, site not specified (principal); E86.0 Dehydration; N17.9 Acute kidney failure, unspecified; I12.9 Hypertensive chronic kidney disease with stage 1 through stage 4 chronic kidney disease, or unspecified chronic kidney disease; N18.9 Chronic kidney disease, unspecified; I48.91 Unspecified atrial fibrillation; E03.9 Hypothyroidism, unspecified; E78.5 Hyperlipidemia, unspecified; K21.9 Gastro-esophageal reflux disease without esophagitis; M81.0 Age-related osteoporosis without current pathological fracture; Z88.0 Allergy status to penicillin; Z79.01 Long term (current) use of anticoagulants; Z79.890 Hormone replacement therapy; Z79.899 Other long term (current) drug therapy
CPT/HCPCS: 0241U; 51701; 80053; 81001; 83735; 84443; 85025; J0696

== ENCOUNTER 2024-08-19 11:03 | Emergency (ER) | payer MEDICARE, OTHER ==
[~2024-08-19] VITALS: Ht 160 cm; Wt 72.6 kg
[~2024-08-19 11:03] MED LIST changes: +CEFD300 PO
[2024-08-19 12:38] LABS: BASOPHILS ABSOLUTE AUTO 0.04 K/mm3 (0.00-0.23); BASOPHILS PERCENT AUTO 1 % (0-2); EOSINOPHILS ABSOLUTE AUTO 0.32 K/mm3 (0.00-0.68); EOSINOPHILS PERCENT AUTO 4 % (0-6); Hematocrit 38.2 % (33.0-51.0); Hemoglobin 12.1 g/dL (11.5-16.0); IMMATURE GRAN ABSOLUTE AUTO 0.03 K/mm3 (0.00-0.10); IMMATURE GRAN PERCENT AUTO 0 % (0-1); LYMPHOCYTES ABSOLUTE AUTO 1.79 K/mm3 (0.84-5.20); LYMPHOCYTES PERCENT AUTO 23 % (21-46); MONOCYTES ABSOLUTE AUTO 0.65 K/mm3 (0.16-1.47); MONOCYTES PERCENT AUTO 8 % (4-13); Mean Corpuscular HGB Conc 31.7 g/dL (31.5-36.5); Mean Corpuscular Volume 101 fL (80-100); NEUTROPHILS ABSOLUTE AUTO 5.08 K/mm3 (1.96-9.15); NEUTROPHILS PERCENT AUTO 64 % (41-73); Platelet Count 236 K/mm3 (150-400); RDW Coefficient Variation 14.2 % (11.7-14.2); RDW Standard Deviation 53.2 fL (35.1-46.3); Red Blood Cell Count 3.78 M/mm3 (3.80-5.20); White Blood Cell Count 7.91 K/mm3 (4.00-11.30)
[2024-08-19 12:54] LABS: Albumin, Blood 3.8 g/dL (3.4-5.0); Albumin/Globulin Ratio 1.2 (0.8-1.8); Bilirubin, Total 0.7 mg/dL (0.1-1.0); Bun/Creatinine Ratio 25.5 (12.0-20.0); Calcium, Blood 9.2 mg/dL (8.5-10.1); Creatinine, Blood 1.37 mg/dL (0.40-1.00); Globulin, Blood 3.2 g/dL (2.2-4.0); Potassium, Blood 4.8 mmol/L (3.5-5.5)
[2024-08-19 15:07] LABS: Influenza A, PCR NEGATIVE (NEGATIVE); Influenza B, PCR NEGATIVE (NEGATIVE); Resp Syncytial Virus, PCR NEGATIVE (NEGATIVE); SARS-Cov-2 (COVID-19) PCR, MMC NEGATIVE (NEGATIVE)
[2024-08-19] MEDS ORDERED: Ketorolac Tromethamine 30mg Vial IV ONE (15:30)
[2024-08-19] MEDS ORDERED: Furosemide 10 MG/ML 4ML Vial IV ONE (16:15)
[2024-08-19 16:55] LABS: Source, Urine Straight Cath
[2024-08-19 16:58] LABS: Appearance, Urine Clear (Clear); Bilirubin, Urine Neg (Neg); Blood, Urine 2+ (Neg); Color, Urine Yellow (P-Yellow); Glucose Qualitative, Urine Neg (Neg); Ketones, Urine Neg (Neg); Leukocyte Esterase, Urine Neg (Neg); Nitrite, Urine Neg (Neg); Protein, Urine Neg (Neg); Urobilinogen, Urine NORM (Normal)
[2024-08-19 17:35] LABS: Bacteria Few /hpf; Squamous Epithelial Cells Rare /hpf (Few); White Blood Cells, Urine 0-2 /hpf (0-5)
[2024-08-19] MEDS ORDERED: Acetaminophen 325 MG TABLET PO ONE (18:55)
[2024-08-19] MEDS ORDERED: OxyCODONE HCL 5 MG TAB PO ONE (18:55)
[2024-08-19] MEDS ORDERED: RX Prepack 6 Tabs Oxycodone 5mg UD ONE (18:55)
[2024-08-19] MEDS ORDERED: Gabapentin 300 MG Cap PO ONE (18:55)
[2024-08-19 19:45] VITALS: BP 132/90
== END 2024-08-19 20:10 | disposition home or self-care (01) ==
LOC: ER 11:03
PROVIDERS: Emergency Medicine; Family Medicine
DX: M54.9 Dorsalgia, unspecified (principal); R05.9 Cough, unspecified; E03.9 Hypothyroidism, unspecified; E78.5 Hyperlipidemia, unspecified; I10 Essential (primary) hypertension; K21.9 Gastro-esophageal reflux disease without esophagitis; Z79.899 Other long term (current) drug therapy; Z79.890 Hormone replacement therapy; Z88.0 Allergy status to penicillin; Z79.02 Long term (current) use of antithrombotics/antiplatelets
CPT/HCPCS: 0241U; 71046; 72080; 80053; 81001; 83690; 83880; 84484; 85025; 93005; 93010; 96374; 96375; 99284-25; A9270; J1885; J1940; P9612

== ENCOUNTER 2024-12-10 04:12 | Emergency (ER) | payer MEDICARE, OTHER ==
[~2024-12-10] VITALS: Ht 121.9 cm; Wt 68.0 kg
[2024-12-10 05:28] LABS: Influenza A, PCR NEGATIVE (NEGATIVE); Influenza B, PCR NEGATIVE (NEGATIVE); Resp Syncytial Virus, PCR NEGATIVE (NEGATIVE)
[2024-12-10 07:12] LABS: SARS-Cov-2 (COVID-19) PCR, MMC POSITIVE (NEGATIVE)
[2024-12-10 08:30] VITALS: BP 131/71
== END 2024-12-10 08:40 | disposition home or self-care (01) ==
LOC: ER 04:12
PROVIDERS: Emergency Medicine
DX: U07.1 COVID-19 (principal); I10 Essential (primary) hypertension; E78.5 Hyperlipidemia, unspecified; K21.9 Gastro-esophageal reflux disease without esophagitis; I48.91 Unspecified atrial fibrillation; Z88.0 Allergy status to penicillin; Z79.02 Long term (current) use of antithrombotics/antiplatelets; Z79.891 Long term (current) use of opiate analgesic; Z79.899 Other long term (current) drug therapy; Z79.1 Long term (current) use of non-steroidal anti-inflammatories (NSAID); Z88.9 Allergy status to unspecified drugs, medicaments and biological substances; Z79.811 Long term (current) use of aromatase inhibitors
CPT/HCPCS: 0241U; 71046; 87081; 87430; 93005; 93010; 99284-25

== ENCOUNTER 2024-12-15 12:09 | Emergency (ER) | payer MEDICARE, OTHER ==
[~2024-12-15] VITALS: Ht 152.4 cm; Wt 72.6 kg
[2024-12-15 13:00] LABS: BASOPHILS ABSOLUTE AUTO 0.03 K/mm3 (0.00-0.23); BASOPHILS PERCENT AUTO 0 % (0-2); EOSINOPHILS ABSOLUTE AUTO 0.12 K/mm3 (0.00-0.68); EOSINOPHILS PERCENT AUTO 2 % (0-6); Hematocrit 39.3 % (33.0-51.0); IMMATURE GRAN ABSOLUTE AUTO 0.07 K/mm3 (0.00-0.10); IMMATURE GRAN PERCENT AUTO 1 % (0-1); LYMPHOCYTES ABSOLUTE AUTO 1.77 K/mm3 (0.84-5.20); LYMPHOCYTES PERCENT AUTO 21 % (21-46); MONOCYTES PERCENT AUTO 11 % (4-13); Mean Corpuscular HGB 31.9 pg (26.0-34.0); Mean Corpuscular HGB Conc 33.1 g/dL (31.5-36.5); Mean Corpuscular Volume 97 fL (80-100); Mean Platelet Volume 10.3 fL (9.1-12.4); NEUTROPHILS ABSOLUTE AUTO 5.37 K/mm3 (1.96-9.15); NEUTROPHILS PERCENT AUTO 65 % (41-73); Platelet Count 257 K/mm3 (150-400); RDW Coefficient Variation 15.3 % (11.7-14.2); RDW Standard Deviation 54.8 fL (35.1-46.3); Red Blood Cell Count 4.07 M/mm3 (3.80-5.20); White Blood Cell Count 8.26 K/mm3 (4.00-11.30)
[2024-12-15] MEDS ORDERED: NS 1,000 ML IV SCH (13:00)
[2024-12-15] MEDS ORDERED: EUTHYROX150 MC1 PO (13:06)
[2024-12-15] MEDS ORDERED: XARELTO20 M1 PO (13:06)
[2024-12-15 13:18] LABS: Albumin, Blood 3.1 g/dL (3.4-5.0); Albumin/Globulin Ratio 0.9 (0.8-1.8); Bilirubin, Total 0.7 mg/dL (0.1-1.0); Bun/Creatinine Ratio 21.5 (12.0-20.0); Calcium, Blood 8.1 mg/dL (8.5-10.1); Creatinine, Blood 1.44 mg/dL (0.40-1.00); Globulin, Blood 3.4 g/dL (2.2-4.0); Potassium, Blood 4.3 mmol/L (3.5-5.5); Thyroid Stimulating Hormone 0.515 uIU/mL (0.360-4.800); Total Protein, Blood 6.5 g/dL (6.4-8.2)
[2024-12-15 15:15] VITALS: BP 98/73
== END 2024-12-15 15:38 | disposition home or self-care (01) ==
LOC: ER 12:09
PROVIDERS: Family Medicine
DX: J12.81 Pneumonia due to SARS-associated coronavirus (principal); E78.5 Hyperlipidemia, unspecified; I10 Essential (primary) hypertension; K21.9 Gastro-esophageal reflux disease without esophagitis; I48.91 Unspecified atrial fibrillation; Z88.0 Allergy status to penicillin; Z79.02 Long term (current) use of antithrombotics/antiplatelets; Z79.891 Long term (current) use of opiate analgesic; Z79.624 Long term (current) use of inhibitors of nucleotide synthesis; Z79.1 Long term (current) use of non-steroidal anti-inflammatories (NSAID); Z88.9 Allergy status to unspecified drugs, medicaments and biological substances
CPT/HCPCS: 71045; 80053; 83880; 84443; 85025; 93005; 93010; 96360; 99285-25

== ENCOUNTER 2025-01-03 17:03 | Emergency (ER) | payer MEDICARE, OTHER ==
[~2025-01-03] VITALS: Ht 162.6 cm; Wt 76.7 kg
[~2025-01-03 17:03] MED LIST changes: +EUTHYROX150 MC1 PO; +XARELTO20 M1 PO
[2025-01-03 17:17] VITALS: BP 126/81
[2025-01-03 18:38] LABS: BASOPHILS ABSOLUTE AUTO 0.03 K/mm3 (0.00-0.23); BASOPHILS PERCENT AUTO 0 % (0-2); EOSINOPHILS ABSOLUTE AUTO 0.24 K/mm3 (0.00-0.68); EOSINOPHILS PERCENT AUTO 3 % (0-6); Hematocrit 37.7 % (33.0-51.0); Hemoglobin 12.4 g/dL (11.5-16.0); IMMATURE GRAN ABSOLUTE AUTO 0.02 K/mm3 (0.00-0.10); IMMATURE GRAN PERCENT AUTO 0 % (0-1); LYMPHOCYTES ABSOLUTE AUTO 2.01 K/mm3 (0.84-5.20); LYMPHOCYTES PERCENT AUTO 23 % (21-46); MONOCYTES ABSOLUTE AUTO 0.93 K/mm3 (0.16-1.47); MONOCYTES PERCENT AUTO 11 % (4-13); Mean Corpuscular HGB 32.1 pg (26.0-34.0); Mean Corpuscular HGB Conc 32.9 g/dL (31.5-36.5); Mean Corpuscular Volume 98 fL (80-100); Mean Platelet Volume 9.7 fL (9.1-12.4); NEUTROPHILS PERCENT AUTO 63 % (41-73); Platelet Count 273 K/mm3 (150-400); RDW Coefficient Variation 15.9 % (11.7-14.2); RDW Standard Deviation 57.2 fL (35.1-46.3); Red Blood Cell Count 3.86 M/mm3 (3.80-5.20); White Blood Cell Count 8.73 K/mm3 (4.00-11.30)
[2025-01-03 18:58] LABS: Source, Urine Clean Catch
[2025-01-03 18:58] LABS: Albumin, Blood 3.5 g/dL (3.4-5.0); Bilirubin, Total 0.9 mg/dL (0.1-1.0); Bun/Creatinine Ratio 20.2 (12.0-20.0); Calcium, Blood 9.2 mg/dL (8.5-10.1); Creatinine, Blood 1.63 mg/dL (0.40-1.00); Globulin, Blood 3.6 g/dL (2.2-4.0); Magnesium, Blood 2.2 mg/dL (1.6-2.4); Potassium, Blood 4.2 mmol/L (3.5-5.5); Total Protein, Blood 7.1 g/dL (6.4-8.2)
[2025-01-03 19:03] LABS: Appearance, Urine Clear (Clear); Bilirubin, Urine Neg (Neg); Blood, Urine Neg (Neg); Glucose Qualitative, Urine Neg (Neg); Ketones, Urine Neg (Neg); Leukocyte Esterase, Urine 2+ (Neg); Nitrite, Urine Neg (Neg); Protein, Urine Neg (Neg); Specific Gravity, Urine 1.005 (1.003-1.022); Urobilinogen, Urine NORM (Normal)
[2025-01-03 19:05] LABS: CORONAVIRUS COVID-19 AG Negative (NEGATIVE); INFLUENZA A AG Negative (NEGATIVE); INFLUENZA B AG Negative (NEGATIVE)
[2025-01-03 19:41] LABS: Color, Urine Pale Yellow (P-Yellow)
[2025-01-03 19:43] LABS: Bacteria Mod /hpf; Red Blood Cells, Urine Not Seen /hpf (0-2); Squamous Epithelial Cells Mod /hpf (Few)
[2025-01-03] MEDS ORDERED: Trimethoprim/Sulfamethoxazole DS Tab PO ONE (20:05)
[2025-01-03] MEDS ORDERED: BACTRIM DS TAB1 EAC1 PO (20:15)
[2025-01-04] MEDS ORDERED: BACTRIM DS TAB1 EAC1 PO (02:00)
== END 2025-01-03 21:07 | disposition home or self-care (01) ==
LOC: ER 17:03
PROVIDERS: Student in an Organized Health Care Education/Training Program
DX: H05.011 Cellulitis of right orbit (principal); N30.00 Acute cystitis without hematuria; R60.0 Localized edema; Z88.0 Allergy status to penicillin; Z79.01 Long term (current) use of anticoagulants; Z79.899 Other long term (current) drug therapy; Z79.890 Hormone replacement therapy; E78.5 Hyperlipidemia, unspecified; I10 Essential (primary) hypertension; I48.91 Unspecified atrial fibrillation; K21.9 Gastro-esophageal reflux disease without esophagitis
CPT/HCPCS: 51701; 70450; 70481; 71045; 80053; 81001; 83605; 83735; 83880; 85025; 87077; 87086; 87186; 87428-QW; 93005; 93010; 99285-25; A9270; Q9967

== ENCOUNTER 2025-01-15 15:43 | Inpatient (IN) | payer MEDICARE, OTHER ==
[~2025-01-15] VITALS: Ht 154.9 cm; Wt 73.5 kg
[~2025-01-15 15:43] MED LIST changes: +BACTRIM DS TAB1 EAC1 PO
[2025-01-15 16:22] LABS: BASOPHILS ABSOLUTE AUTO 0.04 K/mm3 (0.00-0.23); BASOPHILS PERCENT AUTO 0 % (0-2); EOSINOPHILS ABSOLUTE AUTO 0.17 K/mm3 (0.00-0.68); EOSINOPHILS PERCENT AUTO 2 % (0-6); Hematocrit 36.6 % (33.0-51.0); Hemoglobin 12.4 g/dL (11.5-16.0); IMMATURE GRAN ABSOLUTE AUTO 0.06 K/mm3 (0.00-0.10); IMMATURE GRAN PERCENT AUTO 1 % (0-1); LYMPHOCYTES ABSOLUTE AUTO 2.05 K/mm3 (0.84-5.20); LYMPHOCYTES PERCENT AUTO 18 % (21-46); MONOCYTES ABSOLUTE AUTO 1.26 K/mm3 (0.16-1.47); MONOCYTES PERCENT AUTO 11 % (4-13); Mean Corpuscular HGB 32.5 pg (26.0-34.0); Mean Corpuscular HGB Conc 33.9 g/dL (31.5-36.5); Mean Corpuscular Volume 96 fL (80-100); Mean Platelet Volume 9.7 fL (9.1-12.4); NEUTROPHILS ABSOLUTE AUTO 7.59 K/mm3 (1.96-9.15); NEUTROPHILS PERCENT AUTO 68 % (41-73); Platelet Count 298 K/mm3 (150-400); RDW Standard Deviation 56.1 fL (35.1-46.3); Red Blood Cell Count 3.82 M/mm3 (3.80-5.20); White Blood Cell Count 11.17 K/mm3 (4.00-11.30)
[2025-01-15 16:36] LABS: Albumin, Blood 3.5 g/dL (3.4-5.0); Bilirubin, Total 0.6 mg/dL (0.1-1.0); Calcium, Blood 9.4 mg/dL (8.5-10.1); Creatinine, Blood 2.67 mg/dL (0.40-1.00); Globulin, Blood 3.6 g/dL (2.2-4.0); Total Protein, Blood 7.1 g/dL (6.4-8.2)
[2025-01-15] MEDS ORDERED: NS 1,000 ML IV SCH ×2 (17:05→19:35)
[2025-01-15 19:34] LABS: Source, Urine Clean Catch
[2025-01-15 19:37] LABS: Appearance, Urine Clear (Clear); Bilirubin, Urine Neg (Neg); Blood, Urine Neg (Neg); Glucose Qualitative, Urine Neg (Neg); Ketones, Urine Neg (Neg); Leukocyte Esterase, Urine Neg (Neg); Nitrite, Urine Neg (Neg); Protein, Urine Neg (Neg); Urobilinogen, Urine NORM (Normal)
[2025-01-15 19:49] LABS: Color, Urine Pale Yellow (P-Yellow)
[2025-01-15] MEDS ORDERED: Lactated Ringer's 1,000 ML IV SCH (20:45)
[2025-01-15] MEDS ORDERED: Ondansetron HCl 2 MG / ML 2ML Vial IV PRN (20:45)
[2025-01-15] MEDS ORDERED: Midodrine 5 MG Tab PO SCH (21:00)
[2025-01-15] MEDS ORDERED: Atorvastatin 10 MG Tab PO SCH (21:00)
[2025-01-15] MEDS ORDERED: Famotidine 20 MG Tab PO SCH (21:00)
[2025-01-15 21:10] LABS: Sodium, Urine, Random 84 mmol/L (20-110); Urea Nitrogen, Urine, Random 237 mg/dL (350-1000)
[2025-01-15 21:47] LABS: Thyroid Stimulating Hormone 0.789 uIU/mL (0.360-4.800)
[2025-01-15 22:03] LABS: Eosinophils-Raw #,Urine 0; White Blood Cells Urine 0-2 /hpf (0-5)
[2025-01-15 22:16] LABS: Albumin, Blood 2.1 g/dL (3.4-5.0); Bilirubin, Total 0.3 mg/dL (0.1-1.0); Bun/Creatinine Ratio 17.6 (12.0-20.0); Calcium, Blood 5.2 mg/dL (8.5-10.1); Creatinine, Blood 1.65 mg/dL (0.40-1.00); Globulin, Blood 2.1 g/dL (2.2-4.0); Potassium, Blood 3.4 mmol/L (3.5-5.5); Total Protein, Blood 4.2 g/dL (6.4-8.2)
[2025-01-15 23:19] VITALS: BP 115/58
--- NOTE | 2025-01-15 23:38 | NUR ---
ADMISSION PATIENT ARRIVED TO PCU 11 VIA STRETCHER, SLIDE TRANSFER COMPLETED. SHE IS ALERT AND ORIENTED TO SELF AND FAMILY, UNAWARE OF PLACE AND SITUATION. PATIENT IS CURRENTLY COOPORATIVE WITH CARE DESPITE SOME NOTED PARNOIA. ON ROOM AIR WITH SPO2 >90%. WILL CONTINUE TO MONITOR. CALL LIGHT WITHIN REACH.
[2025-01-16 03:40] VITALS: BP 97/60
[2025-01-16 05:14] LABS: BASOPHILS ABSOLUTE AUTO 0.04 K/mm3 (0.00-0.23); BASOPHILS PERCENT AUTO 0 % (0-2); EOSINOPHILS ABSOLUTE AUTO 0.25 K/mm3 (0.00-0.68); EOSINOPHILS PERCENT AUTO 3 % (0-6); Hematocrit 38.4 % (33.0-51.0); Hemoglobin 12.7 g/dL (11.5-16.0); IMMATURE GRAN ABSOLUTE AUTO 0.03 K/mm3 (0.00-0.10); IMMATURE GRAN PERCENT AUTO 0 % (0-1); LYMPHOCYTES ABSOLUTE AUTO 1.94 K/mm3 (0.84-5.20); LYMPHOCYTES PERCENT AUTO 22 % (21-46); MONOCYTES ABSOLUTE AUTO 0.87 K/mm3 (0.16-1.47); MONOCYTES PERCENT AUTO 10 % (4-13); Mean Corpuscular HGB 32.2 pg (26.0-34.0); Mean Corpuscular HGB Conc 33.1 g/dL (31.5-36.5); Mean Corpuscular Volume 97 fL (80-100); Mean Platelet Volume 9.4 fL (9.1-12.4); NEUTROPHILS ABSOLUTE AUTO 5.84 K/mm3 (1.96-9.15); NEUTROPHILS PERCENT AUTO 65 % (41-73); Platelet Count 289 K/mm3 (150-400); RDW Standard Deviation 57.5 fL (35.1-46.3); Red Blood Cell Count 3.95 M/mm3 (3.80-5.20); White Blood Cell Count 8.97 K/mm3 (4.00-11.30)
--- NOTE | 2025-01-16 05:37 | NUR ---
SHIFT SUMMARY PATIENT HAD NO ACTUE CANGES SINCE ADMIT. A PRESSURE INJURY WAS NOTED ON THE PATIENT'S BUTTOCKS, DR SHEPPARD NOTIFIED. WILL CONTINUE TO MONITOR. CALL LIGHT WITHIN REACH.
[2025-01-16] MEDS ORDERED: Levothyroxine Sodium 0.15 MG Tab PO SCH (06:00)
[2025-01-16] MEDS ORDERED: Pantoprazole Sodium 40 MG Tab PO SCH (06:00)
[2025-01-16 06:13] LABS: Albumin, Blood 3.4 g/dL (3.4-5.0); Albumin/Globulin Ratio 1.1 (0.8-1.8); Bilirubin, Total 0.7 mg/dL (0.1-1.0); Calcium, Blood 8.7 mg/dL (8.5-10.1); Creatinine, Blood 2.25 mg/dL (0.40-1.00); Globulin, Blood 3.2 g/dL (2.2-4.0); Magnesium, Blood 2.2 mg/dL (1.6-2.4); Potassium, Blood 4.6 mmol/L (3.5-5.5); Total Protein, Blood 6.6 g/dL (6.4-8.2)
[2025-01-16] MEDS ORDERED: Rivaroxaban 10 MG Tab PO SCH (09:00)
[2025-01-16] MEDS ORDERED: Folic Acid 1 MG TAB PO SCH (09:00)
[2025-01-16 09:43] VITALS: BP 130/99
--- NOTE | 2025-01-16 11:01 | NUR ---
[facility] [place] Pt wakes to verbal stimlui w/ touch but is unable to remain awake. Pt able to state name & . Pt states correct month & year for but wrong day. Pt not answering further orientation Qs & returns back to sleep. Scheduled PO medications not yet given d/t pt inability to remain awake & safely follow instructions. Pt incontinent of urine. PRN dinorah care/attends changes provided as well as Q2H repositioning. Bed alarm on.
[2025-01-16 13:59] VITALS: BP 103/74
[2025-01-16 15:49] VITALS: BP 115/70
--- NOTE | 2025-01-16 18:13 | NUR ---
Medical Status / End of Shift Pt more alert this afternoon. A&O to self, place, month & year. Pt VSS. Monitor showing Afib, HR 80s-100. Spo2 > 92% on RA. Pt made medical w/ telemetry status. Pt incontinent, wearing attends. Coccyx/buttocks pressure sores w/ new mepilex placed this shift. q2H turns. Pt family now at bedside, reporting pt confused for about a week. Pt daughter stating pt previously hallucinating, stating seeing a boy that wasn't there & pt now stating to daugher that staff is hiding her from family. Pt daughter informing pt she is not being hidden from staff.
--- NOTE | 2025-01-16 19:26 | NUR ---
Transfer to surgical floor Pt medical w/ telemetry status. Report given to accepting surgical floor RN. Pt to be transferred to [facility] via bed w/ belongings.
[2025-01-16 19:52] VITALS: BP 127/77
[2025-01-16] MEDS ORDERED: HYDROcodone 5-APAP 325 TAB PO PRN (22:30)
[2025-01-16 23:30] VITALS: BP 104/66
[2025-01-17 04:48] VITALS: BP 137/93
--- NOTE | 2025-01-17 04:55 | NUR ---
SHIFT SUMMARY LIZ WAS DROWSY BUT ROUSABLE ON TRANSFER, AND ABLE TO ANSWER ORIENTATION QUESTIONS APPROPRIATELY, BUT HAS NOTABLE CONFUSION AND SOME PARANOID DELUSIONS. PT HAS SKIN BREAKDOWN TO BUTTOX, MEPLEX REPLACED. DUE TO POOR MOBILITY AND FREQUENT URINATION WITH SKIN BREAKDOWN PURWIC PLACED. PT C/O GENERAL NECK AND BACK PAIN, NO PAIN MEDS AVAILABLE, HOSPITALIST CONTACTED, REPORTED HOME NORCO RESUMED. NO ACUTE EVENTS TONIGHT.
[2025-01-17 07:29] VITALS: BP 97/68
[2025-01-17 08:03] LABS: BASOPHILS ABSOLUTE AUTO 0.04 K/mm3 (0.00-0.23); BASOPHILS PERCENT AUTO 1 % (0-2); EOSINOPHILS ABSOLUTE AUTO 0.23 K/mm3 (0.00-0.68); EOSINOPHILS PERCENT AUTO 3 % (0-6); Hemoglobin 12.5 g/dL (11.5-16.0); IMMATURE GRAN ABSOLUTE AUTO 0.03 K/mm3 (0.00-0.10); IMMATURE GRAN PERCENT AUTO 0 % (0-1); LYMPHOCYTES ABSOLUTE AUTO 1.71 K/mm3 (0.84-5.20); LYMPHOCYTES PERCENT AUTO 20 % (21-46); MONOCYTES ABSOLUTE AUTO 0.97 K/mm3 (0.16-1.47); MONOCYTES PERCENT AUTO 11 % (4-13); Mean Corpuscular HGB 32.4 pg (26.0-34.0); Mean Corpuscular HGB Conc 32.9 g/dL (31.5-36.5); Mean Corpuscular Volume 98 fL (80-100); Mean Platelet Volume 9.5 fL (9.1-12.4); NEUTROPHILS ABSOLUTE AUTO 5.55 K/mm3 (1.96-9.15); NEUTROPHILS PERCENT AUTO 65 % (41-73); Platelet Count 272 K/mm3 (150-400); RDW Standard Deviation 58.4 fL (35.1-46.3); Red Blood Cell Count 3.86 M/mm3 (3.80-5.20); White Blood Cell Count 8.53 K/mm3 (4.00-11.30)
[2025-01-17 08:29] LABS: Bun/Creatinine Ratio 15.2 (12.0-20.0); Calcium, Blood 8.9 mg/dL (8.5-10.1); Creatinine, Blood 1.91 mg/dL (0.40-1.00); Potassium, Blood 4.2 mmol/L (3.5-5.5)
[2025-01-17 10:36] VITALS: BP 113/71
[2025-01-17 13:50] VITALS: BP 130/84
--- NOTE | 2025-01-17 14:30 | NUR ---
RETURNED PHONE CALL FROM PT'S GRANDDAUGHTER GRACE W/ PT'S CONSENT, NO ANSWER. LEFT MESSAGE.
--- NOTE | 2025-01-17 16:07 | NUR ---
PT HAD 6 BEAT RUN OF V TACH PER [employer] AND IS NOW BACK IN AFIB W/ RATE OF 84. PT IS RESTING IN BED AND ASYMPTOMATIC, DENIES CHEST PAIN/PRESSURE.
--- NOTE | 2025-01-17 16:14 | NUR ---
SHIFT SUMMARY PT IS A/OX4 BUT GETS SLIGHTLY CONFUSED AT TIMES. SBA IN ROOM, W/ WALKER FOR LONG DISTANCES. PT HAS AMBULATED MULTIPLE TIMES TODAY W/ STAFF. IV FLUIDS GIVEN PER ORDERS. PT REPORTS SORENESS IN HER BUTTOX, MEPILEX IN PLACE TO COCCYX AND PT REPOSITIONED OFTEN. PAIN MEDS GIVEN W/ GOOD RESULTS. PT VOIDING CLEAR URINE, TOLERATING REG DIET. TELE IN PLACE, SEE PREVIOUS NOTE ABOUT V TACH. PT CURRENTLY IN AFIB. VSS. RESTING PEACEFULLY W/ CALL LIGHT IN REACH.
[2025-01-17 18:11] VITALS: BP 120/69
[2025-01-17 19:12] VITALS: BP 118/66
--- NOTE | 2025-01-17 19:53 | NUR ---
SPOKE W/ GRANDDAUGHTER GRACE AND GAVE UPDATE W/ PT'S CONSENT. PT IS SLIGHTLY MORE CONFUSED THAN HER BASELINE PER GRANDDAUGHTER. BED ALARM ON FOR SAFETY. DAUGHTER PAGE TO BE CONTACTED TO VERIFY PT'S HOME SEIZURE MEDS GRANDDAUGHTER WAS UNSURE OF HOME MEDS, NOC NURSE WANG NOTIFIED.
[2025-01-17] MEDS ORDERED: Gabapentin 300 MG Cap PO ONE (20:40)
[2025-01-18 05:20] VITALS: BP 145/82
[2025-01-18 07:04] VITALS: BP 127/81
--- NOTE | 2025-01-18 07:42 | NUR ---
PATIENT INCONTINENT T/O NOC. CHANGED AND REPOSITIONED PT NEEDED. PATIENT ANSWERS QUESTIONS APPROP AT TIMES BUT THEN WILL SAY SOMETHING REALLY BIZZARE. PT WAS CRYING AT ONE TIME AND I ASKED HER WAHAT WAS WRONG AND DID SHE HAVE A BAD DREAM AND SHE SAID "I PISSED MYSELF." I REASSURED HER THAT IT WAS OK AND WE WOULD CHANGE HER. SEEMS MORE CONFUSED AT NIGHT. WANTED HER FAMILY. PT DID C/O ABDOMINAL PAIN. MEDICATED HER WITH A NORCO. ALSO CALLED ABOUT GABAPENTIN AND GOT A ONE TIME DOSE FOR PT. PT FINALLY SLEPT REALLY WELL T/O THE REST OF THE NIGHT. HAD TO WAKE HER TO TAKE HER 2 6AM MEDS. SHE TOOK THE MEDS WITH WATER AND NEVER OPENED HER EYES. REPORT TO RN TAKING PATIENT
[2025-01-18 08:10] LABS: Bun/Creatinine Ratio 13.2 (12.0-20.0); Calcium, Blood 8.8 mg/dL (8.5-10.1); Creatinine, Blood 1.59 mg/dL (0.40-1.00); Potassium, Blood 4.4 mmol/L (3.5-5.5)
--- NOTE | 2025-01-18 10:25 | NUR ---
ASSUMED CARE OF PT AT APROX 1005
[2025-01-18 14:30] VITALS: BP 128/83
--- NOTE | 2025-01-18 19:11 | NUR ---
DISCHARGE PT DISCHARGED HOME FROM UNIT AT APROX 1855. PT AND DAUGHTER GIVEN WRITTEN AND VERBAL DISCHARGE INSTRUCTIONS AND VERBALIZED UNDERSTANDING. IV REMOVED. WHEELCHAIR TO PRIVATE VEHICLE.
== END 2025-01-18 18:45 | disposition home health service (06) | DRG 682 ==
LOC: ER 15:43 → PCU 20:42 → SURS 01-16 20:23
PROVIDERS: Internal Medicine; Nurse Practitioner Acute Care; Student in an Organized Health Care Education/Training Program; ADMIT Internal Medicine
DX: N17.9 Acute kidney failure, unspecified (principal); G93.41 Metabolic encephalopathy; E87.1 Hypo-osmolality and hyponatremia; G40.909 Epilepsy, unspecified, not intractable, without status epilepticus; E03.9 Hypothyroidism, unspecified; K21.9 Gastro-esophageal reflux disease without esophagitis; F51.01 Primary insomnia; N18.32 Chronic kidney disease, stage 3b; I12.9 Hypertensive chronic kidney disease with stage 1 through stage 4 chronic kidney disease, or unspecified chronic kidney disease; M81.0 Age-related osteoporosis without current pathological fracture; I48.0 Paroxysmal atrial fibrillation; E86.0 Dehydration; E78.5 Hyperlipidemia, unspecified; Z79.01 Long term (current) use of anticoagulants; Z79.899 Other long term (current) drug therapy; Z79.890 Hormone replacement therapy; Z88.0 Allergy status to penicillin; Z96.652 Presence of left artificial knee joint; Z87.440 Personal history of urinary (tract) infections; Z90.49 Acquired absence of other specified parts of digestive tract; Z98.890 Other specified postprocedural states
CPT/HCPCS: 36415; 70450; 76770; 80048; 80053; 81003; 83735; 83880; 83930; 83935; 84300; 84443; 84540; 85025; 87205; 93005; 93010; 96360; 96361; 97110; 97161; 97530; 99285-25; A9270; J2405; J7030; J7120

== ENCOUNTER 2025-02-09 13:29 | Emergency (ER) | payer MEDICARE ==
[~2025-02-09] VITALS: Ht 167.6 cm; Wt 68.0 kg
[2025-02-09 14:40] LABS: Source, Urine Fem Cath
[2025-02-09] MEDS ORDERED: Acetaminophen 500 MG Tab PO ONE (14:55)
[2025-02-09] MEDS ORDERED: Methyl Salicylate/Menth/Camph 57 GM TUBE TOP ONE (14:55)
[2025-02-09 15:11] LABS: Appearance, Urine Clear (Clear); Bilirubin, Urine Neg (Neg); Blood, Urine Neg (Neg); Glucose Qualitative, Urine Neg (Neg); Ketones, Urine Neg (Neg); Leukocyte Esterase, Urine Neg (Neg); Nitrite, Urine Neg (Neg); Protein, Urine Neg (Neg); Urobilinogen, Urine NORM (Normal)
[2025-02-09 15:21] LABS: Color, Urine Pale Yellow (P-Yellow)
[2025-02-09 15:30] VITALS: BP 121/87
== END 2025-02-09 16:37 | disposition home or self-care (01) ==
LOC: ER 13:29
PROVIDERS: Student in an Organized Health Care Education/Training Program
DX: R41.0 Disorientation, unspecified (principal); I95.89 Other hypotension; E86.1 Hypovolemia; E03.9 Hypothyroidism, unspecified; I10 Essential (primary) hypertension; K21.9 Gastro-esophageal reflux disease without esophagitis; Z88.0 Allergy status to penicillin; Z79.899 Other long term (current) drug therapy; Z79.02 Long term (current) use of antithrombotics/antiplatelets; Z79.890 Hormone replacement therapy
CPT/HCPCS: 81003; 99283; A9270; P9612

== ENCOUNTER 2025-04-13 10:57 | Emergency (ER) | payer MEDICARE, OTHER ==
[~2025-04-13] VITALS: Ht 157.5 cm; Wt 74.8 kg
[2025-04-13 11:13] VITALS: BP 120/64
[2025-04-13 11:20] LABS: Base Excess Venous 4.7 mmol/L; Bicarbonate Venous 28.9 mmol/L (24.0-30.0); PCO2 Venous 33.7 mmHg (38-42); pH Blood Venous 7.52 (7.34-7.37)
[2025-04-13 11:22] LABS: BASOPHILS ABSOLUTE AUTO 0.04 K/mm3 (0.00-0.23); BASOPHILS PERCENT AUTO 0 % (0-2); EOSINOPHILS ABSOLUTE AUTO 0.22 K/mm3 (0.00-0.68); EOSINOPHILS PERCENT AUTO 2 % (0-6); Hematocrit 40.3 % (33.0-51.0); IMMATURE GRAN ABSOLUTE AUTO 0.03 K/mm3 (0.00-0.10); IMMATURE GRAN PERCENT AUTO 0 % (0-1); LYMPHOCYTES PERCENT AUTO 22 % (21-46); MONOCYTES ABSOLUTE AUTO 1.09 K/mm3 (0.16-1.47); MONOCYTES PERCENT AUTO 11 % (4-13); Mean Corpuscular HGB 32.9 pg (26.0-34.0); Mean Corpuscular HGB Conc 32.3 g/dL (31.5-36.5); Mean Corpuscular Volume 102 fL (80-100); Mean Platelet Volume 9.5 fL (9.1-12.4); NEUTROPHILS ABSOLUTE AUTO 6.48 K/mm3 (1.96-9.15); NEUTROPHILS PERCENT AUTO 64 % (41-73); Platelet Count 263 K/mm3 (150-400); RDW Coefficient Variation 13.2 % (11.7-14.2); RDW Standard Deviation 49.5 fL (35.1-46.3); Red Blood Cell Count 3.95 M/mm3 (3.80-5.20); White Blood Cell Count 10.06 K/mm3 (4.00-11.30)
[2025-04-13 11:46] LABS: Albumin, Blood 3.7 g/dL (3.4-5.0); Bilirubin, Total 0.6 mg/dL (0.1-1.0); Bun/Creatinine Ratio 15.3 (12.0-20.0); Creatinine, Blood 2.02 mg/dL (0.40-1.00); Globulin, Blood 3.6 g/dL (2.2-4.0); Magnesium, Blood 2.2 mg/dL (1.6-2.4); Potassium, Blood 4.1 mmol/L (3.5-5.5); Total Protein, Blood 7.3 g/dL (6.4-8.2)
[2025-04-13 14:44] LABS: Source, Urine Straight Cath
[2025-04-13 14:49] LABS: Appearance, Urine Clear (Clear); Bilirubin, Urine Neg (Neg); Blood, Urine 1+ (Neg); Glucose Qualitative, Urine Neg (Neg); Ketones, Urine Neg (Neg); Leukocyte Esterase, Urine Neg (Neg); Nitrite, Urine Neg (Neg); Protein, Urine Neg (Neg); Urobilinogen, Urine NORM (Normal)
[2025-04-13 15:04] LABS: Color, Urine Pale Yellow (P-Yellow)
[2025-04-13 15:05] LABS: Bacteria Few /hpf; Red Blood Cells, Urine 0-2 /hpf (0-2); Squamous Epithelial Cells Few /hpf (Few); White Blood Cells, Urine 0-2 /hpf (0-5)
== END 2025-04-13 15:41 | disposition home or self-care (01) ==
LOC: ER 10:57
PROVIDERS: Student in an Organized Health Care Education/Training Program
DX: R06.02 Shortness of breath (principal); I48.91 Unspecified atrial fibrillation; I12.9 Hypertensive chronic kidney disease with stage 1 through stage 4 chronic kidney disease, or unspecified chronic kidney disease; N18.32 Chronic kidney disease, stage 3b; G40.909 Epilepsy, unspecified, not intractable, without status epilepticus; E03.9 Hypothyroidism, unspecified; E78.5 Hyperlipidemia, unspecified; K21.9 Gastro-esophageal reflux disease without esophagitis; Z88.0 Allergy status to penicillin; Z79.01 Long term (current) use of anticoagulants; Z79.899 Other long term (current) drug therapy
CPT/HCPCS: 71045; 80053; 81001; 82803; 83735; 83880; 84484; 85025; 93005; 93010; 99285-25

== ENCOUNTER 2025-04-27 16:58 | Emergency (ER) | payer MEDICARE, OTHER ==
[~2025-04-27] VITALS: Ht 154.9 cm; Wt 73.0 kg
[2025-04-27 17:25] LABS: BASOPHILS ABSOLUTE AUTO 0.04 K/mm3 (0.00-0.23); BASOPHILS PERCENT AUTO 0 % (0-2); EOSINOPHILS ABSOLUTE AUTO 0.09 K/mm3 (0.00-0.68); EOSINOPHILS PERCENT AUTO 1 % (0-6); Hematocrit 41.1 % (33.0-51.0); Hemoglobin 13.3 g/dL (11.5-16.0); IMMATURE GRAN ABSOLUTE AUTO 0.04 K/mm3 (0.00-0.10); IMMATURE GRAN PERCENT AUTO 0 % (0-1); LYMPHOCYTES ABSOLUTE AUTO 2.00 K/mm3 (0.84-5.20); LYMPHOCYTES PERCENT AUTO 16 % (21-46); MONOCYTES ABSOLUTE AUTO 0.99 K/mm3 (0.16-1.47); MONOCYTES PERCENT AUTO 8 % (4-13); Mean Corpuscular HGB Conc 32.4 g/dL (31.5-36.5); Mean Corpuscular Volume 101 fL (80-100); NEUTROPHILS ABSOLUTE AUTO 9.51 K/mm3 (1.96-9.15); NEUTROPHILS PERCENT AUTO 75 % (41-73); NRBC ABSOLUTE 0.00 K/mm3 (0.00-0.02); NRBC Auto 0.0 /100 WBC (0.0-0.2); Platelet Count 269 K/mm3 (150-400); RDW Coefficient Variation 12.9 % (11.7-14.2); RDW Standard Deviation 48.6 fL (35.1-46.3)
[2025-04-27 17:33] LABS: Alanine Aminotransfer (ALT/SGP 16.0 U/L (12-78); Albumin, Blood 3.4 g/dL (3.4-5.0); Albumin/Globulin Ratio 1.1 (0.8-1.8); Anion Gap 10.0 mmol/L (3-11); Aspartate Aminotrans (AST/SGOT 14.0 U/L (12-37); Bilirubin, Total 0.6 mg/dL (0.1-1.0); Blood Urea Nitrogen 36.0 mg/dL (8-24); CO2, Blood 27.0 mmol/L (21-32); Calcium, Blood 8.6 mg/dL (8.5-10.1); Chloride, Blood 101.0 mmol/L (98-108); Creatinine, Blood 1.87 mg/dL (0.40-1.00); Globulin, Blood 3.1 g/dL (2.2-4.0); Glucose, Blood 92.0 mg/dL (70-99); Potassium, Blood 3.6 mmol/L (3.5-5.5); Sodium, Blood 134.0 mmol/L (136-145); Total Protein, Blood 6.5 g/dL (6.4-8.2)
[2025-04-27] MEDS ORDERED: Miconazole Nitrate 2% 85 GM PWD TOP ONE (17:35)
[2025-04-27 17:48] LABS: Source, Urine Straight Cath
[2025-04-27 17:58] LABS: Bilirubin, Urine Neg (Neg); Glucose Qualitative, Urine Neg (Neg); Ketones, Urine Neg (Neg); Leukocyte Esterase, Urine 1+ (Neg); Protein, Urine 1+ (Neg); Specific Gravity, Urine 1.015 (1.003-1.022); Urobilinogen, Urine NORM (Normal)
[2025-04-27 18:06] LABS: Color, Urine Yellow (P-Yellow)
[2025-04-27 18:08] LABS: Red Blood Cells, Urine 0-2 /hpf (0-2)
[2025-04-27 19:16] VITALS: BP 124/75
[2025-05-01] MEDS ORDERED: NITR100CA PO (14:16)
== END 2025-04-27 19:37 | disposition home or self-care (01) ==
LOC: ER 16:58
PROVIDERS: Emergency Medicine
DX: R53.1 Weakness (principal); R53.83 Other fatigue; E03.9 Hypothyroidism, unspecified; E78.5 Hyperlipidemia, unspecified; K21.9 Gastro-esophageal reflux disease without esophagitis; I48.91 Unspecified atrial fibrillation; I13.0 Hypertensive heart and chronic kidney disease with heart failure and stage 1 through stage 4 chronic kidney disease, or unspecified chronic kidney disease; I50.9 Heart failure, unspecified; N18.32 Chronic kidney disease, stage 3b; Z79.899 Other long term (current) drug therapy; Z88.0 Allergy status to penicillin
CPT/HCPCS: 51701; 71045; 80053; 81001; 83880; 84484; 85025; 87077; 87086; 87186; 93005; 93010; 99284-25; A9270

== ENCOUNTER → 2025-08-14 | Outpatient (CLI) | payer MEDICARE, OTHER ==
[~2025-08-14] MED LIST changes: +NITR100CA PO
[2025-08-15 12:13] LABS: Bilirubin, Urine Neg (Neg); Glucose Qualitative, Urine Neg (Neg); Ketones, Urine Neg (Neg); Leukocyte Esterase, Urine Neg (Neg); Protein, Urine Neg (Neg); Specific Gravity, Urine 1.010 (1.003-1.022); Urobilinogen, Urine NORM (Normal)
[2025-08-15 12:39] LABS: Color, Urine Pale Yellow (P-Yellow)
== END | disposition home or self-care (01) ==
LOC: LAB 19:37 → LAB SHORT 19:37
PROVIDERS: Nurse Practitioner Family
DX: R44.1 Visual hallucinations (principal); R30.0 Dysuria
CPT/HCPCS: 81001; 87077; 87086; 87186

== ENCOUNTER 2025-08-26 15:22 | Inpatient (IN) | payer MEDICARE, OTHER ==
[2025-08-26] VITALS (14 sets, daily range): BP systolic 81–121; BP diastolic 49–88
[~2025-08-26] VITALS: Ht 152.4 cm; Wt 75.9 kg
[2025-08-26] MEDS ORDERED: Ketorolac Tromethamine 30mg Vial IV ONE (15:55)
[2025-08-26] MEDS ORDERED: NS 500 ML IV SCH (16:20)
[2025-08-26 16:38] LABS: BASOPHILS ABSOLUTE AUTO 0.02 K/mm3 (0.00-0.23); BASOPHILS PERCENT AUTO 0 % (0-2); EOSINOPHILS ABSOLUTE AUTO 0.00 K/mm3 (0.00-0.68); EOSINOPHILS PERCENT AUTO 0 % (0-6); Hematocrit 34.9 % (33.0-51.0); Hemoglobin 11.8 g/dL (11.5-16.0); IMMATURE GRAN ABSOLUTE AUTO 0.07 K/mm3 (0.00-0.10); IMMATURE GRAN PERCENT AUTO 1 % (0-1); LYMPHOCYTES ABSOLUTE AUTO 1.40 K/mm3 (0.84-5.20); LYMPHOCYTES PERCENT AUTO 12 % (21-46); MONOCYTES ABSOLUTE AUTO 0.81 K/mm3 (0.16-1.47); MONOCYTES PERCENT AUTO 7 % (4-13); Mean Corpuscular HGB Conc 33.8 g/dL (31.5-36.5); Mean Corpuscular Volume 97 fL (80-100); NEUTROPHILS ABSOLUTE AUTO 9.73 K/mm3 (1.96-9.15); NEUTROPHILS PERCENT AUTO 81 % (41-73); NRBC ABSOLUTE 0.00 K/mm3 (0.00-0.02); NRBC Auto 0.0 /100 WBC (0.0-0.2); Platelet Count 302 K/mm3 (150-400); RDW Coefficient Variation 13.1 % (11.7-14.2); RDW Standard Deviation 47.3 fL (35.1-46.3)
[2025-08-26 17:02] LABS: Alanine Aminotransfer (ALT/SGP 21.0 U/L (12-78); Albumin, Blood 2.4 g/dL (3.4-5.0); Albumin/Globulin Ratio 0.7 (0.8-1.8); Anion Gap 11.0 mmol/L (3-11); Aspartate Aminotrans (AST/SGOT 31.0 U/L (12-37); Bilirubin, Total 0.9 mg/dL (0.1-1.0); Blood Urea Nitrogen 61.0 mg/dL (8-24); CO2, Blood 29.0 mmol/L (21-32); Calcium, Blood 8.2 mg/dL (8.5-10.1); Chloride, Blood 95.0 mmol/L (98-108); Creatinine, Blood 1.9 mg/dL (0.40-1.00); Globulin, Blood 3.5 g/dL (2.2-4.0); Glucose, Blood 127.0 mg/dL (70-99); Magnesium, Blood 2.4 mg/dL (1.6-2.4); Potassium, Blood 2.8 mmol/L (3.5-5.5); Sodium, Blood 132.0 mmol/L (136-145); Total Protein, Blood 5.9 g/dL (6.4-8.2)
[2025-08-26] MEDS ORDERED: CefTRIAXone Sodium 1,000 MG in NS 50 ML IV ONE (17:35)
[2025-08-26 17:52] LABS: pH Blood Venous 7.52 (7.34-7.37)
[2025-08-26] MEDS ORDERED: NS 850 ML IV SCH (17:55)
[2025-08-26 18:26] LABS: Source, Urine Foley catheter
[2025-08-26 18:29] LABS: Bilirubin, Urine Neg (Neg); Color, Urine Yellow (P-Yellow); Glucose Qualitative, Urine Neg (Neg); Ketones, Urine Neg (Neg); Leukocyte Esterase, Urine 2+ (Neg); Protein, Urine Neg (Neg); Specific Gravity, Urine 1.015 (1.003-1.022); Urobilinogen, Urine NORM (Normal)
[2025-08-26 18:38] LABS: Influenza A, PCR NEGATIVE (NEGATIVE); Influenza B, PCR NEGATIVE (NEGATIVE); Resp Syncytial Virus, PCR NEGATIVE (NEGATIVE); SARS-Cov-2 (COVID-19) PCR, MMC NEGATIVE (NEGATIVE)
[2025-08-26] MEDS ORDERED: NS 1,000 ML IV SCH (18:50)
[2025-08-26] MEDS ORDERED: FLU VACC TS2025(65UP)/MF59C/PF 45 MCG/0.5 ML SYRINGE IM SCH (18:55)
[2025-08-26] MEDS ORDERED: NS 500 ML IV ONE (19:00)
[2025-08-26] MEDS ORDERED: CefTRIAXone Sodium 1,000 MG in NS 100 ML IV SCH (19:00)
[2025-08-26 20:48] LABS: pH Blood Venous 7.43 (7.34-7.37)
--- NOTE | 2025-08-26 22:18 | NUR ---
ARRIVAL TO ICU: PT ARRIVED TO ICU BED 09 VIA GURNEY FROM ER AT 2008. PT SLID ACROSS TO ICU BED. ON LEVOPHED UPON ARRIVAL TO [facility], INFUSING TO MAINTAIN MAP >65. NS STOPPED PER DR. KUO. PIV FLUSHES/DRAWS BACK. PT LETHARGIC UPON ARRIVAL BUT ABLE TO OPEN EYES TO VERBAL STIMULI. ABLE TO STATE SHE THINKS SHE IS IN THE HOSPITAL BUT NO OTHER ORIENTATION QUESTIONS. PT VERY SLEEPY AND UNABLE TO HOLD A CONVERSATION. FOLLOWS SIMPLE COMMANDS LIKE SQUEEZING HANDS. 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 PT ON 2L NC, WITH SPO2 >94% PIV TO LH AND RH BOTH PATENT. PT HAS CHRONIC INDWELLING [place], CHANGED IN THE ER. PATENT AND DRAINING TO GRAVITY. PRESSURE SORE ON COCCYX NOTED, LAURA NOTIFIED AND MEPILEX PLACED. FAMILY AT BEDSIDE, UPDATED TO CARE BEFORE GOING HOME. BED LOCKED, CALL LIGHT IN REACH.
[2025-08-27] VITALS (60 sets, daily range): BP systolic 72–129; BP diastolic 53–91
[2025-08-27 00:53] LABS: pH Blood Venous 7.44 (7.34-7.37)
--- NOTE | 2025-08-27 02:14 | NUR ---
ASSUMED CARE OF PATIENT, PATIENT IS LETHARGIC, RESPONDS TO TOUCH. ORIENTED TO SELF ONLY. SP02 99% ON 2L VIA NC, LS COARSE T/O. HR AFIB 90s-110s, LEVOPHED INFUSING TO MAINTAIN MAP >65. MOTTLING IN HANDS AND FEET. [place] IS PATENT AND DRAINING TO GRAVITY. PHOTO OF PATIENTS PRESSURE SORE ON COCCYX IS IN CHART. PATIENT REPOSITIONED TO SIDE AND MEPILEX ON COCCYX. CALL LIGHT IN REACH
[2025-08-27 03:46] LABS: BASOPHILS ABSOLUTE AUTO 0.02 K/mm3 (0.00-0.23); BASOPHILS PERCENT AUTO 0 % (0-2); EOSINOPHILS ABSOLUTE AUTO 0.00 K/mm3 (0.00-0.68); EOSINOPHILS PERCENT AUTO 0 % (0-6); Hematocrit 36.3 % (33.0-51.0); Hemoglobin 12.1 g/dL (11.5-16.0); IMMATURE GRAN ABSOLUTE AUTO 0.07 K/mm3 (0.00-0.10); IMMATURE GRAN PERCENT AUTO 0 % (0-1); LYMPHOCYTES ABSOLUTE AUTO 2.10 K/mm3 (0.84-5.20); LYMPHOCYTES PERCENT AUTO 13 % (21-46); MONOCYTES ABSOLUTE AUTO 1.54 K/mm3 (0.16-1.47); MONOCYTES PERCENT AUTO 10 % (4-13); Mean Corpuscular HGB Conc 33.3 g/dL (31.5-36.5); Mean Corpuscular Volume 101 fL (80-100); NEUTROPHILS ABSOLUTE AUTO 12.45 K/mm3 (1.96-9.15); NEUTROPHILS PERCENT AUTO 77 % (41-73); NRBC ABSOLUTE 0.00 K/mm3 (0.00-0.02); NRBC Auto 0.0 /100 WBC (0.0-0.2); Platelet Count 327 K/mm3 (150-400); RDW Coefficient Variation 13.2 % (11.7-14.2); RDW Standard Deviation 49.0 fL (35.1-46.3)
[2025-08-27 04:07] LABS: Alanine Aminotransfer (ALT/SGP 22.0 U/L (12-78); Albumin, Blood 2.2 g/dL (3.4-5.0); Albumin/Globulin Ratio 0.6 (0.8-1.8); Anion Gap 11.0 mmol/L (3-11); Aspartate Aminotrans (AST/SGOT 32.0 U/L (12-37); Bilirubin, Total 0.6 mg/dL (0.1-1.0); Blood Urea Nitrogen 56.0 mg/dL (8-24); CO2, Blood 31.0 mmol/L (21-32); Calcium, Blood 8.6 mg/dL (8.5-10.1); Chloride, Blood 100.0 mmol/L (98-108); Creatinine, Blood 1.81 mg/dL (0.40-1.00); Globulin, Blood 3.8 g/dL (2.2-4.0); Glucose, Blood 140.0 mg/dL (70-99); Magnesium, Blood 2.6 mg/dL (1.6-2.4); Potassium, Blood 3.7 mmol/L (3.5-5.5); Sodium, Blood 138.0 mmol/L (136-145); Total Protein, Blood 6.0 g/dL (6.4-8.2)
--- NOTE | 2025-08-27 06:00 | NUR ---
SHIFT SUMMARY NO ACUTE CHANGES SINCE ASSUMING CARE OF PATIENT. REMAINS LETHARGIC, RESPONDS TO TOUCH, ORIENTED TO SELF. SP02 98% ON 2L VIA NC. HR A.FIB 106, TITRATING LEVOPHED DOWN. [place] PATENT AND DRAINING TO GRAVITY. PATIENT REPOSITIONED Q2 HOURS. CALL LIGHT IN REACH
--- NOTE | 2025-08-27 07:27 | NUR ---
ASSUMPTION OF CARE PT ASLEEP, RESTING IN BED ON L SIDE. SPO2 >96% ON 2L O2 VIA NC. LEVO INFUSING @ 2MCG/MIN, MAP >65. HR AFIB 90s. TEMP 100.3, BLANKETS REMOVED FROM PT. PT ROUSABLE TO VERBAL/PHYSCIAL STIMULI. PT MINIMALLY FOLLOW DIRECTIONS. [place] DRAINING YELLOW URINE. [facility]. CALL LIGHT IN REACH, BED IN LOWEST POSITION.
[2025-08-27] MEDS ORDERED: ZINC OXIDE/PETROLATUM, YELLOW 1 APPLIC/71 GM PASTE TOP PRN (08:15)
[2025-08-27] MEDS ORDERED: Heparin Sodium,Porcine 5,000 UNIT/0.5 ML SDV SC SCH (09:00)
[2025-08-27] MEDS ORDERED: NS 1,000 ML IV SCH ×2 (10:15→11:05)
[2025-08-27] MEDS ORDERED: Vancomycin (Pharmacy Consult) IV SCH (13:55)
[2025-08-27 15:39] LABS: Anion Gap 9.0 mmol/L (3-11); Blood Urea Nitrogen 54.0 mg/dL (8-24); CO2, Blood 32.0 mmol/L (21-32); Calcium, Blood 8.7 mg/dL (8.5-10.1); Chloride, Blood 105.0 mmol/L (98-108); Creatinine, Blood 1.46 mg/dL (0.40-1.00); Glucose, Blood 128.0 mg/dL (70-99); Potassium, Blood 3.7 mmol/L (3.5-5.5); Sodium, Blood 142.0 mmol/L (136-145)
[2025-08-27] MEDS ORDERED: NS 250 ML IV ONE (17:42)
--- NOTE | 2025-08-27 18:14 | NUR ---
SHIFT SUMMARY A&O TO SELF, FAMILY, LOCATION. NOT FULLY ORIENTED TO TIME, SITUATION. PT ANSWERS SOME QUESTIONS, ABLE TO FOLLOW BASIC COMMANDS. PT MORE ALERT THIS AFTERNOON COMPARED TO THIS AM. PT PASS NORA SWALLOW EVAL & CLEAR DIET ORDERED. HOME MEDICATIONS RESTARTED. LEVOPHED ON STANDBY SINCE APPROX 0830. MAP MAINTAIN >65, HR 90-120s. SPO2 >96% ON 2L O2 VIA NC, PT ABLE TO USE FLUTTER c ENCOURAGEMENT/DIRECTION, LARGE AMOUNTS OF WHITE, THICH SPUTUM. IV FLUIDS & ABX INFUSING PER EMAR. [place] DRAINING YELLOW URINE TO GRAVITY. SMEAR BM TODAY, INCONT. PT DECLINE TO WORK c PT/OT TODAY R/T PAIN & MIN COMMAND FOLLOWING. PT MEDICATED FOR PAIN PER EMAR c MIN RELIEF. PT HAS DIFFICULTY VERBALLY LOCALIZING PAIN. ALL EXTREMITIES STIFF. COCCYX MEPILEX PLACED TODAY. Q2 TURN SCHEDULE MAINTAINED. CALL LIGHT IN REACH, WILL REPORT TO PRAKASH RN.
[2025-08-27] MEDS ORDERED: CefTRIAXone Sodium 1,000 MG in NS 100 ML IV SCH (20:00)
--- NOTE | 2025-08-27 20:18 | NUR ---
[facility] APPROX 1900 PATIENT IS ALERT AND ORIENTED X4. HABEMATOLEL AND SLOW TO RESPOND AT TIMES. ALSO LETHARGIC AT TIMES. SP02 96% ON 2L VIA NC, DENIES SOB. HR A.FIB 90-110s, BP STABLE, DENIES CP/PRESSURE. [place] PATENT AND DRAINING TO GRAVITY. PATIENT TOLERATED SMALL SIPS OF THICKEND WATER WELL. ORAL CARE DONE. ATTEMPTED TO USE BEDPAN, NO BM. REPOSITIONED AND CALL LIGHT IN REACH
[2025-08-28] VITALS (30 sets, daily range): BP systolic 110–143; BP diastolic 69–98
[2025-08-28] MEDS ORDERED: FentaNYL Citrate 50 MCG/ML 2 ML Injection IV ONE (00:30)
[2025-08-28 03:46] LABS: Vancomycin, Random 20.4 ug/mL
[2025-08-28 04:57] LABS: BASOPHILS ABSOLUTE AUTO 0.01 K/mm3 (0.00-0.23); BASOPHILS PERCENT AUTO 0 % (0-2); EOSINOPHILS ABSOLUTE AUTO 0.06 K/mm3 (0.00-0.68); EOSINOPHILS PERCENT AUTO 1 % (0-6); Hematocrit 37.0 % (33.0-51.0); Hemoglobin 11.6 g/dL (11.5-16.0); IMMATURE GRAN ABSOLUTE AUTO 0.05 K/mm3 (0.00-0.10); IMMATURE GRAN PERCENT AUTO 1 % (0-1); LYMPHOCYTES ABSOLUTE AUTO 1.46 K/mm3 (0.84-5.20); LYMPHOCYTES PERCENT AUTO 15 % (21-46); MONOCYTES ABSOLUTE AUTO 0.71 K/mm3 (0.16-1.47); MONOCYTES PERCENT AUTO 7 % (4-13); Mean Corpuscular HGB Conc 31.4 g/dL (31.5-36.5); Mean Corpuscular Volume 102 fL (80-100); NEUTROPHILS ABSOLUTE AUTO 7.37 K/mm3 (1.96-9.15); NEUTROPHILS PERCENT AUTO 76 % (41-73); NRBC ABSOLUTE 0.00 K/mm3 (0.00-0.02); NRBC Auto 0.0 /100 WBC (0.0-0.2); Platelet Count 257 K/mm3 (150-400); RDW Coefficient Variation 13.1 % (11.7-14.2); RDW Standard Deviation 49.6 fL (35.1-46.3)
[2025-08-28 05:24] LABS: Alanine Aminotransfer (ALT/SGP 29.0 U/L (12-78); Albumin, Blood 2.2 g/dL (3.4-5.0); Albumin/Globulin Ratio 0.6 (0.8-1.8); Anion Gap 11.0 mmol/L (3-11); Aspartate Aminotrans (AST/SGOT 44.0 U/L (12-37); Bilirubin, Total 0.6 mg/dL (0.1-1.0); Blood Urea Nitrogen 52.0 mg/dL (8-24); C-REACTIVE PROTEIN, EXT RANGE 10.8 mg/dL (0.000-0.300); CO2, Blood 29.0 mmol/L (21-32); Calcium, Blood 8.4 mg/dL (8.5-10.1); Chloride, Blood 107.0 mmol/L (98-108); Creatinine, Blood 1.37 mg/dL (0.40-1.00); Globulin, Blood 3.5 g/dL (2.2-4.0); Glucose, Blood 107.0 mg/dL (70-99); Magnesium, Blood 2.7 mg/dL (1.6-2.4); Phosphorus, Blood 3.6 mg/dL (2.5-4.9); Potassium, Blood 3.5 mmol/L (3.5-5.5); Sodium, Blood 143.0 mmol/L (136-145); Total Protein, Blood 5.7 g/dL (6.4-8.2)
--- NOTE | 2025-08-28 06:21 | NUR ---
SHIFT SUMMARY PATIENT REMAINS ALERT AND ORIENTED X4, SOME CONFUSION AT TIMES. PATIENT HARD OF HEARING AND SLOW TO RESPOND. RESTLESS THROUGH THE NIGHT STATING SHE JUST WANTS TO GO HOME. STARTED COMPLAINING OF CHEST PAIN LAST NIGHT AND GENERALIZED PAIN. CALLED HOSPITALIST AN EKG WAS DONE, APPEARED UNCHANGED FROM LAST. ONE TIME DOSE OF FENTANYL GIVEN. ATTEMPTED THICKENED WATER FOR PATIENT SITTING STRAIGHT UP IN BED, PATIENT STARTED COUGHING AFTER EACH SPOONFUL, HELD ALL PO INTAKE. MOUTH SWABS AND ORAL CARE DONE FREQUENTLY THROUGH THE NIGHT. HR AFIB 100-120s THROUGH THE NIGHT, SLOWLY TRENDING UP THIS AM. BP STABLE. NO OTHER COMPLAINTS OF CHEST PAIN AFTER THE DOSE OF FENTANYL. SP02 100% ON 2L VIA NC. LS COARSE TO DIMINISHED, PATIENT HAS MODERATE TO WEAK COUGH, MODERATE AMOUNT OF THICK WHITE SPUTUM. [place] PATENT AND DRAINING TO GRAVITY. PATIENT ATTEMPTED TO USE BEDPAN, NO BM THIS SHIFT, BOWEL TONES HYPERACTIVE. REPOSITIONED Q2 HOURS, SIDE TO SIDE. CALL LIGHT IN REACH
[2025-08-28] MEDS ORDERED: Metoprolol Tartrate 1 MG/ML 5 ML VIAL IV ONE (06:50)
--- NOTE | 2025-08-28 12:59 | NUR ---
MD CONSULT PT HR MAINRAIN >130 S/P METOPROLOL PER EMAR. MD ORDER TO CHANGE DOSE TO 100MG DAILY AND GIVE AN ADDITIONAL 50MG DOSE NOW.
--- NOTE | 2025-08-28 14:22 | NUR ---
MD CONSULT PT HR TACHY TO 150s, RESTING 120-130s, BP 133/88, MAP 102. THIS RN VOICE CONCERN OF TACHYCARDIA. MD ORDER TO "WATCH" PT FOR NOW. MD UPDATE ON STATUS: NO CHANGE IN MENTATION, PT CONTINUES TO TOLERATE PO MEDICATION & VOCALIZE INCREASED PAIN c MOVEMENT. MD ORDER PO CARDIZEM PRN PER EMAR.
[2025-08-28 15:52] LABS: Vancomycin, Random 15.5 ug/mL
--- NOTE | 2025-08-28 17:33 | NUR ---
SHIFT/TRANSFER SUMMARY A&O TO SELF, FAMILY, LOCATION. NOT FULLY ORIENTED TO TIME, SITUATION. PT ANSWERS SOME QUESTIONS, ABLE TO FOLLOW BASIC COMMANDS. PER SPEECH EVAL THIS AM, PT ABLE TO SWALLOW PILLS WHOLE c WATER, ORDERED A MINCED & MOIST DIET. MAP >65, HR 100-120s. SEE PREVIOUS NOTES FOR CARDIAC UPDATES. SPO2 >96% ON RA PT ABLE TO USE FLUTTER c ENCOURAGEMENT/DIRECTION, LARGE AMOUNTS OF WHITE, THICH SPUTUM. ABX INFUSING PER EMAR. [place] DRAINING YELLOW URINE TO GRAVITY. MULT LARGE, LOOSE, INCONT BMs TODAY. PT UNABLE TO WORK c PT/OT TODAY R/T PAIN & MIN COMMAND FOLLOWING. ALL EXTREMITIES STIFF. COCCYX c ZINC PASTE. Q2 TURN SCHEDULE MAINTAINED. FAMILY AT BEDSIDE. CALL LIGHT IN REACH, REPORT GIVEN TO DENTAL TREATMENT COORDINATOR R/T TO TRANSFER TO PCU 9.
--- NOTE | 2025-08-28 18:15 | NUR ---
PT TRANSFER NOTE PT IS ALERT AND EXPRESSES PAIN WITH ANY MOVEMENT, PT IS AFEBRILE. CONTINUOUS CARDIAC MONITORING IN PLACE SHOWING AFIB HR IN THE 100'S, MAP >65. PT IS ON RA WITH SP02 >92%. TRANSFERED PT TO BED VIA SLIDE SHEET. PT'S FAMILY AT BEDSIDE. TEMP [place] IS PATENT AND DRAINING TO GRAVITY. REPLACED MEPILEX ON COCCYX. LAC PIV AND L HAND PIV ARE IN PLACE. BED IN LOWEST POSITION, CALL LIGHT IN REACH, WILL REPORT TO ONCOMING SHIFT.
[2025-08-29] VITALS (7 sets, daily range): BP systolic 112–125; BP diastolic 76–88
[2025-08-29 04:22] LABS: BASOPHILS ABSOLUTE AUTO 0.02 K/mm3 (0.00-0.23); BASOPHILS PERCENT AUTO 0 % (0-2); EOSINOPHILS ABSOLUTE AUTO 0.09 K/mm3 (0.00-0.68); EOSINOPHILS PERCENT AUTO 1 % (0-6); Hematocrit 36.2 % (33.0-51.0); Hemoglobin 11.8 g/dL (11.5-16.0); IMMATURE GRAN ABSOLUTE AUTO 0.04 K/mm3 (0.00-0.10); IMMATURE GRAN PERCENT AUTO 0 % (0-1); LYMPHOCYTES ABSOLUTE AUTO 1.37 K/mm3 (0.84-5.20); LYMPHOCYTES PERCENT AUTO 15 % (21-46); MONOCYTES ABSOLUTE AUTO 0.68 K/mm3 (0.16-1.47); MONOCYTES PERCENT AUTO 8 % (4-13); Mean Corpuscular HGB Conc 32.6 g/dL (31.5-36.5); Mean Corpuscular Volume 101 fL (80-100); NEUTROPHILS ABSOLUTE AUTO 6.92 K/mm3 (1.96-9.15); NEUTROPHILS PERCENT AUTO 76 % (41-73); NRBC ABSOLUTE 0.00 K/mm3 (0.00-0.02); NRBC Auto 0.0 /100 WBC (0.0-0.2); Platelet Count 283 K/mm3 (150-400); RDW Coefficient Variation 12.8 % (11.7-14.2); RDW Standard Deviation 47.9 fL (35.1-46.3)
[2025-08-29 04:36] LABS: Alanine Aminotransfer (ALT/SGP 32.0 U/L (12-78); Albumin, Blood 2.3 g/dL (3.4-5.0); Albumin/Globulin Ratio 0.7 (0.8-1.8); Anion Gap 5.0 mmol/L (3-11); Aspartate Aminotrans (AST/SGOT 43.0 U/L (12-37); Bilirubin, Total 0.5 mg/dL (0.1-1.0); Blood Urea Nitrogen 37.0 mg/dL (8-24); CO2, Blood 30.0 mmol/L (21-32); Calcium, Blood 8.4 mg/dL (8.5-10.1); Chloride, Blood 106.0 mmol/L (98-108); Creatinine, Blood 1.02 mg/dL (0.40-1.00); Globulin, Blood 3.1 g/dL (2.2-4.0); Glucose, Blood 101.0 mg/dL (70-99); Magnesium, Blood 2.7 mg/dL (1.6-2.4); Potassium, Blood 3.4 mmol/L (3.5-5.5); Sodium, Blood 138.0 mmol/L (136-145); Total Protein, Blood 5.4 g/dL (6.4-8.2)
[2025-08-29] MEDS ORDERED: Potassium Chloride 10 Meq Tablet SA PO ONE (05:00)
--- NOTE | 2025-08-29 05:53 | NUR ---
SHIFT SUMMARY: PT A&OX2-[address] AND CURRENT SITUATION. BP STABLE. HR AFIB 90S-110S. PT MAINTAINED >92% ON RA AND REMAINED AFEBRILE. PT TAKES MEDS WHOLE WITH WATER. [place] CATHETER IN PLACE AND DRAINING TO GRAVITY. PT REMAINED BEDREST. Q2 REPOSITIONING PROVIDED. POTASSIUM 3.4 AND MD MADE AWARE. ORDERED KDUR 10MEQ PO X1. MEDICATED PER ORDER. BED IS LOW AND LOCKED. CALL LIGHT WITHIN REACH AND BED ALARM ON. CONTINUE WITH CURRENT PLAN OF CARE.
[2025-08-29 08:21] LABS: Vancomycin, Random 21.2 ug/mL
--- NOTE | 2025-08-29 17:45 | NUR ---
PALLIATIVE CARE VISIT: MET WITH DAUGHTER IN PT ROOM. PT SLEPT THE WHOLE VISIT. ALLOWED DAUGHTER TO EXPRESS HER CONCERNS. DISCUSSED DIFFERENCE BETWEEN WHAT HOME HEALTH AND HOSPICE PROVIDE. SHE WAS UNDER THE IMPRESSION HOSPICE PROVIDED CARE GIVERS. EDUCATED HER ON WHAT HOSPICE DOES PROVIDE. SHE HAS A MEETING WITH FAMILY AND LUDY FORMAN AND MD TOMORROW AT 10 AM TO DISCUSS OPTIONS FURTHER.
--- NOTE | 2025-08-29 18:40 | NUR ---
TRANSFER NOTE/END OF SHIFT SUMMARY PT IS A/0 X2-3, CAN BE CONFUSED AT TIMES AND IS LETHARGIC BUT AROUSABLE. PT IS AFEBRILE. CONTINUOUS CARDIAC MONITORING IN PLACE SHOWING AFIB, MAP >65. HR IN THE 100'S. PT IS ON RA WITH SP02 >92%. PT TOLERATED TAKING PILLS WHOLE WITH WATER. PT IS INCONTINENT. TEMP [place] IS IN PLACE AND DRAINING TO GRAVITY. PIV LAC AND PIV L HAND ARE IN PLACE. PALLIATIVE CARE IS CONSULTED AND WILL PLAN TO MEET WITH FAMILY TO DISCUSS PLAN OF CARE. BED IN LOWEST POSITION, CALL LIGHT IN REACH, FAMILY AT BEDSIDE, WILL REPORT TO ONCOMING RN. TRANSFERED PT VIA HOSPITAL BED, ALL BELONGINGS WENT WITH PT. PT LEFT UNIT AT 1735.
[2025-08-29] MEDS ORDERED: NS 250 ML IV PRN (20:05)
[2025-08-30 00:11] VITALS: BP 112/67
--- NOTE | 2025-08-30 06:34 | NUR ---
SHIFT SUMMARY PT DROWSY AND SLEEPING MOST OF THE NIGHT. ABLE TO WAKE UP ENOUGH TO DRINK SOME PO FLUID AND TAKE PILLS WITHOUT RISK OF ASPIRATION. PT ORIENTED TO SELF AND FAMILY. PT WITH OCC PRODUCTIVE COUGH OF THICK WHITE SPUTUM- YANKOUR SUCTION AT BEDSIDE TO HELP WITH SECRETIONS. PT REPOSITIONED Q 2 HRS. MEPELEX TO COCCYX CHANGED WITH INCONT STOOL. [place] DRAINING YELLOW/TIN URINE. IV ANTIBIOTICS CONTINUE PER ORDER.
[2025-08-30 07:39] VITALS: BP 132/97
--- NOTE | 2025-08-30 08:45 | NUR ---
FAMILY MEETING: MET WITH PT'S DAUGHTER RAMA AND GRANDDAUGHTER MICH. PT WAS ALSO PRESENT, BUT REMAINED IN HOSPITAL BED WITH EYES CLOSED, APPEARS HARD TO ROUSE TODAY. FAMILY ASKS QUESTIONS ABOUT DISCHARGE, SNF PLACEMENT, HOME HEALTH, LTC MEDICAID, HOSPICE, ETC. AT THIS TIME, THE PATIENT LIVES IN HER OWN HOME BUT SHE IS UNABLE TO CARE FOR HERSELF AT THIS TIME. ACCORDING TO DAUGHTER RAMA, 2 OF HER SIBLINGS CURRENTLY LIVE IN THE HOME WITH PT, BUT IN A "ROOMMATE" CAPACITY ONLY. RAMA REPORTS HER 2 SIBLINGS WORK, AND LACK CAPACITY CAREGIVERS. INFORMATION GIVEN TO RAMA; INCLUDING INSTRUCTIONS FOR LTC MEDICAID TELEPHONE APPOINTMENT SETUP. NO DECISIONS MADE AT THIS TIME REGARDING GOALS OF CARE.
[2025-08-30 09:48] VITALS: BP 128/73
[2025-08-30 13:18] LABS: BASOPHILS ABSOLUTE AUTO 0.05 K/mm3 (0.00-0.23); BASOPHILS PERCENT AUTO 1 % (0-2); EOSINOPHILS ABSOLUTE AUTO 0.17 K/mm3 (0.00-0.68); EOSINOPHILS PERCENT AUTO 2 % (0-6); Hematocrit 37.9 % (33.0-51.0); Hemoglobin 11.9 g/dL (11.5-16.0); IMMATURE GRAN ABSOLUTE AUTO 0.14 K/mm3 (0.00-0.10); IMMATURE GRAN PERCENT AUTO 2 % (0-1); LYMPHOCYTES ABSOLUTE AUTO 1.26 K/mm3 (0.84-5.20); LYMPHOCYTES PERCENT AUTO 15 % (21-46); MONOCYTES ABSOLUTE AUTO 0.55 K/mm3 (0.16-1.47); MONOCYTES PERCENT AUTO 6 % (4-13); Mean Corpuscular HGB Conc 31.4 g/dL (31.5-36.5); NEUTROPHILS ABSOLUTE AUTO 6.53 K/mm3 (1.96-9.15); NEUTROPHILS PERCENT AUTO 75 % (41-73); NRBC ABSOLUTE 0.00 K/mm3 (0.00-0.02); NRBC Auto 0.0 /100 WBC (0.0-0.2); Platelet Count 303 K/mm3 (150-400); RDW Coefficient Variation 12.8 % (11.7-14.2); RDW Standard Deviation 50.4 fL (35.1-46.3)
[2025-08-30 13:20] LABS: Mean Corpuscular Volume 107 fL (80-100)
[2025-08-30 13:42] LABS: Alanine Aminotransfer (ALT/SGP 32.0 U/L (12-78); Albumin, Blood 2.2 g/dL (3.4-5.0); Albumin/Globulin Ratio 0.8 (0.8-1.8); Anion Gap 5.0 mmol/L (3-11); Aspartate Aminotrans (AST/SGOT 33.0 U/L (12-37); Bilirubin, Total 0.4 mg/dL (0.1-1.0); Blood Urea Nitrogen 24.0 mg/dL (8-24); CO2, Blood 29.0 mmol/L (21-32); Calcium, Blood 8.2 mg/dL (8.5-10.1); Chloride, Blood 106.0 mmol/L (98-108); Creatinine, Blood 0.83 mg/dL (0.40-1.00); Globulin, Blood 2.9 g/dL (2.2-4.0); Glucose, Blood 164.0 mg/dL (70-99); Potassium, Blood 3.7 mmol/L (3.5-5.5); Sodium, Blood 136.0 mmol/L (136-145); Total Protein, Blood 5.1 g/dL (6.4-8.2)
[2025-08-30 15:14] VITALS: BP 120/75
[2025-08-30 15:33] LABS: Creatinine, Blood 0.82 mg/dL (0.40-1.00); Vancomycin, Trough 16.2 ug/mL (5.0-10.0)
[2025-08-30] MEDS ORDERED: HYDROcodone 5-APAP 325 TAB PO PRN (15:55)
[2025-08-30 19:48] VITALS: BP 117/80
--- NOTE | 2025-08-30 23:58 | NUR ---
AT 2327 THE CHARGE NURSE ATTEMPTED TO GIVE THE ONE TIME ORDER OF TRAZODONE TO THE PT AND THE PT STATE SHE DID NOT WANT IT. PT NOW AT 0000 IS STILL AGGITATED AND YELLING OUT TO "QUIT IT" AND THAT "SHE WANTS TO GO HOME." THIS LOCK CORNER MACHINE OPERATOR AND THE PERFORATOR LOADER HAVE BOTH ATTEMPTED TO REDIRECT PT AND COMFORT HER BUT SHE IS NOT REDIRECTABLE AT THE MOMENT.
[2025-08-31 00:28] VITALS: BP 96/69
--- NOTE | 2025-08-31 04:26 | NUR ---
SHIFT SUMMARY: PT IS AOX1 AND CONTINOUSLY SHOUTS OUT. PT REFUSES TO TAKE TRAZADONE TO HELP HER SLEEP. Q2 TURNS FOR REPOSITIONING. PT HAS TELLY AND CONTINOUS PULSE OX MONITORING. NO ACUTE CHANGES THIS SHIFT.
[2025-08-31 05:49] VITALS: BP 110/76
[2025-08-31 07:50] VITALS: BP 106/66
--- NOTE | 2025-08-31 15:22 | NUR ---
PT IS BECOMING DIFFICULT TO ROUSE. ANY ATTEMPTS TO MOVE PT RESULT IN HER YELLING OUT WITH EYES CLOSED, "DON'T TOUCH ME!" GRANDDAUGHTER IS A REGISTERED NURSE, AND REQUESTS BEGINNING COMFORT CARE NOW TO ASSURE PT'S COMFORT. DR ANDERS AGREEABLE. PT TO TRANSFER HOME WITH [facility] TOMORROW. CM SENDING CONSULT NOW.
[2025-08-31] MEDS ORDERED: Morphine Sulfate 20 MG/1ML 1 ML Oral Syringe SL PRN (15:45)
--- NOTE | 2025-08-31 17:32 | NUR ---
SHIFT SUMMARY: PATIENT TELE DC'D PER ORDER. PATIENT ON COMFORT CARE MEASURE PER FAMILY'S REQUEST. PATIENT MEDICATED FOR COMFORT AND REPOSITION. PATIENT FAMILY AT BEDSIDE T/O THE DAY, SPOKE TO DR. ANDERS AND PALLIATIVE, DICKSON mancilla PLAN OF CARE. PATIENT A/O TO SELF ONLY, CONFUSED, FOLLOWING COMMANDS. PATIENT REFUSED ALL MEALS THIS SHIFT, ORAL CARE DONE. PATIENT HAS [place] FOR ACUTE RETENTION, PLACED AT HER DOCTORS OFFICE AND WAS CHANGED IN ED PER FAMILY. [place] PATENT DRAINING TO GRAVITY. BED IN LOWEST POSITION, ALARM ON FOR SAFETY. CALL LIGHT IN REACH.
--- NOTE | 2025-09-01 06:19 | NUR ---
SHIFT SUMMARY COMFORT CARE CONTINUES. PT MEDICATED WITH ROXINOL AND ATIVAN PER EMAR. TURNED AND REPOSITIONED Q2-3 HRS. [place] DRAINING YELLOW URINE, BUT HAS BEEN LEAKING WELL. TUBING REPOSITIONED AND BALLOON NOW WITH 20ML STERILE WATER. MEPELEX INTACT TO COCCYX. PT WITH SLOW, EVEN RESPIRATIONS. GRANDDAUGHTER CALLED THIS RN X2 DURING THE NIGHT TO CHECK STATUS OF PT. ALL QUESTIONS ANSWERED. PLAN IS TO D/C WITH HOSPICE LATER TODAY.
--- NOTE | 2025-09-01 07:30 | NUR ---
COMFORT CARE SUPPORTIVE VISIT: NO ACUTE S/SX OF DISTRESS NOTED. PLAN FOR D/C TO [facility] TODAY. PC TO REMAIN AVAILABLE NEEDED.
[2025-09-01] MEDS ORDERED: MORP20L SL (13:51)
--- NOTE | 2025-09-01 14:53 | NUR ---
PT TRANSFERRED HOME AT 1400 WITH [facility] TO TAKE OVER CARE. FAMILY MEMBER AT BEDSIDE TO TAKE HOME PERSONAL BELONGINGS. PT TREATED FOR PAIN AND ANXIETY PER EMAR. PT TURNED Q2HRS UNDER CARE. PT TRANSPORTED HOME VIA GURNEY.
== END 2025-09-01 14:14 | disposition hospice, home (50) | DRG 871 ==
LOC: ER 15:22 → ICUE 18:49 → ERHOLD 18:49 → MEDS 18:49 → ICUE 20:07 → PCU 08-28 17:49 → MEDS 08-29 18:35 → ENPENDDIS 09-01 12:55 → MEDS 09-01 14:14
PROVIDERS: Hospitalist; Internal Medicine; Nurse Practitioner Acute Care; Student in an Organized Health Care Education/Training Program; ADMIT Student in an Organized Health Care Education/Training Program
PROC: 3E03329 Introduction of Other Anti-infective into Peripheral Vein, Percutaneous Approach (ICD-10-PCS; principal; 2025-08-26)
PROC: 3E033XZ Introduction of Vasopressor into Peripheral Vein, Percutaneous Approach (ICD-10-PCS; 2025-08-26)
PROC: 0T2BX0Z Change Drainage Device in Bladder, External Approach (ICD-10-PCS; 2025-08-26)
DX: A41.51 Sepsis due to Escherichia coli [E. coli] (principal); G92.8 Other toxic encephalopathy; J18.9 Pneumonia, unspecified organism; J96.01 Acute respiratory failure with hypoxia; R65.21 Severe sepsis with septic shock; T83.511A Infection and inflammatory reaction due to indwelling urethral catheter, initial encounter; N39.0 Urinary tract infection, site not specified; I13.0 Hypertensive heart and chronic kidney disease with heart failure and stage 1 through stage 4 chronic kidney disease, or unspecified chronic kidney disease; Z51.5 Encounter for palliative care; Z66 Do not resuscitate; N17.9 Acute kidney failure, unspecified; N18.4 Chronic kidney disease, stage 4 (severe); I50.22 Chronic systolic (congestive) heart failure; G93.49 Other encephalopathy; A41.59 Other Gram-negative sepsis; R65.20 Severe sepsis without septic shock; E78.5 Hyperlipidemia, unspecified; E03.9 Hypothyroidism, unspecified; I48.0 Paroxysmal atrial fibrillation; G89.4 Chronic pain syndrome; K21.9 Gastro-esophageal reflux disease without esophagitis; M19.90 Unspecified osteoarthritis, unspecified site; E87.6 Hypokalemia; E86.0 Dehydration; E86.1 Hypovolemia; I95.1 Orthostatic hypotension; G40.909 Epilepsy, unspecified, not intractable, without status epilepticus; G62.9 Polyneuropathy, unspecified; R29.6 Repeated falls; R32 Unspecified urinary incontinence; F03.B0 Unspecified dementia, moderate, without behavioral disturbance, psychotic disturbance, mood disturbance, and anxiety; Z96.653 Presence of artificial knee joint, bilateral; Z88.0 Allergy status to penicillin; Z79.01 Long term (current) use of anticoagulants; Z79.890 Hormone replacement therapy; Z87.440 Personal history of urinary (tract) infections; Y73.2 Prosthetic and other implants, materials and accessory gastroenterology and urology devices associated with adverse incidents
CPT/HCPCS: 31720; 36415; 51702; 70450; 71045; 76770; 80048; 80053; 80202; 81001; 82140; 82565; 82803; 82947; 83605; 83735; 83880; 84100; 84145; 85025; 85651; 86140; 87040; 87077; 87086; 87186; 87637; 92610; 93005; 93010; 94664; 94762; 96374-59; 97110; 97161; 97530; 99285-25; A9270; J0456; J0696; J1644; J3010; J3373; J3480; J7030; J7050